=== PATIENT | female | born 1960 | race Caucasian/White ===

== ENCOUNTER → 2016-10-02 | Outpatient (CLI) | payer BC ==
[~2016-10-02] MED LIST: CATHETER FLUSH 10 ML SYR IV PRN; IOHEXOL 350 MG/ML 100 ML (OMNIPAQUE 350) VIAL IV ONE; LEVO175T2 PO; NS 100 ML (IVPB) BAG IV ONE
[2016-10-02 13:40] LABS: BLOOD UREA NITROGEN 16 MG/DL (7-18); BUN/CREATININE RATIO 18; CREATININE SERUM 0.88 MG/DL (0.60-1.30); GFR ESTIMATED > 60
--- NOTE | 2016-10-02 14:41 | Diagnostic Imaging Report ---
PROCEDURE: CT abdomen and pelvis with contrast. TECHNIQUE: Multiple contiguous axial images were obtained through the abdomen and pelvis after administration of intravenous contrast. INDICATION: Abdominal hernia with right flank pain. COMPARISON: 07/18/2014 FINDINGS: Lower chest: The lung bases are clear. No pericardial or pleural effusion. Peritoneum: No free intraperitoneal air or fluid. Liver and biliary system: Diffuse hypoattenuation of the liver suggests hepatic steatosis. Stable surgical changes of partial right hepatectomy. No suspicious hepatic lesion to suggest neoplastic process. Specifically, there is no lesion in the region of the hypodensity seen in the left hepatic lobe on prior CT from 2014. Portal vein is patent. Status post cholecystectomy. No bile duct dilatation. Spleen and Pancreas: Spleen is normal. The pancreas enhances normally without mass lesion or peripancreatic inflammatory changes. Adrenals: Normal. tract: The kidneys enhance normally without suspicious mass or obstruction. Urinary bladder is distended without wall thickening. Status post hysterectomy. No suspicious adnexal mass. GI tract: Stomach is decompressed. No bowel obstruction. No pericolonic inflammatory changes. Normal appendix. Vasculature and Lymph nodes: Normal caliber aorta. No abdominal or pelvic lymphadenopathy. Musculoskeletal: No concerning osseous lesion. No hernia at the ventral abdominal wall. IMPRESSION: 1. No acute intra-abdominal process. Specifically, no bowel obstruction, urinary tract calculi or obstructive uropathy. 2. Stable surgical changes from partial right hepatectomy. No suspicious hepatic lesion. Dictated by: Dictated on workstation # [id number]
== END ==
LOC: RAD 13:00
PROVIDERS: ATTEND Family Medicine
DX: K43.2 Incisional hernia without obstruction or gangrene (principal)
CPT/HCPCS: 36415; 74177; 82565; 84520

== ENCOUNTER 2016-10-29 14:48 | Emergency (ER) | payer BC ==
[~2016-10-29] VITALS: Ht 162.6 cm; Wt 72.6 kg
[~2016-10-29 14:48] MED LIST changes: -CATHETER FLUSH 10 ML SYR IV PRN; -IOHEXOL 350 MG/ML 100 ML (OMNIPAQUE 350) VIAL IV ONE; -NS 100 ML (IVPB) BAG IV ONE
[2016-10-29] MEDS ORDERED: NS IV 1000 ML 1,000 ML IV SCH (15:30)
[2016-10-29 15:43] LABS: BILIRUBIN,URINE NEGATIVE (NEGATIVE); KETONES,URINE NEGATIVE (NEGATIVE); LEUKOCYTE ESTERASE ,URINE 1+ (NEGATIVE); NITRITE,URINE NEGATIVE (NEGATIVE); PH,URINE 6 (5-9); PROTEIN,URINE NEGATIVE (NEGATIVE); UROBILINOGEN,URINE NORMAL (NORMAL)
--- NOTE | 2016-10-29 15:44 | ED General ---
General Chief Complaint: General Problems/Pain Stated Complaint: POSS DEHYDRATION Nursing Triage Note: PT AMBULATED TO ROOM. PT STATES SHE KNOWS SHE IS DEHYDRATED. PT STATES SHE IS DIZZY, AND DISORIENTATED. PT STATES SHE HAS HAD DIARRHEA FOR APPROX. A MONTH NOW. Nursing Sepsis Screen: No Definite Risk Source of Information: Patient Exam Limitations: No Limitations History of Present Illness Time Seen by Provider: 15:41 Initial Comments To ER with complaints of dehydration. She states that she has been dizzy, disoriented secondary to watery diarrhea without blood or mucus that she's had for a month. This is been evaluated by her primary care provider and her car supplier at and states that no one can figure out why. She states that she's had a CT scan as well as stool sample done which failed to show any abnormalities. She's been on Levsin without improvement and she's been on Flagyl and Diflucan as well. She does not have vomiting or chills. She has epigastric abdominal pain and right sided abdominal pain. Timing/Duration: 1-2 Days Severity: Moderate Allergies and Home Medications Allergies Coded Allergies: Nitrofurantoin Macrocrystal (Verified Allergy, Unknown, 03/26/14) nitrofurantoin (Verified Allergy, Unknown, 03/26/14) ofloxacin (Verified Allergy, Unknown, 03/26/14) Uncoded Allergies: PRN VK (Allergy, Unknown, 03/26/14) Z PACK (Allergy, Unknown, 03/26/14) Home Medications Levothyroxine Sodium 175 Mcg Tablet, 1 EACH PO DAILY, (Reported) Constitutional: see HPI EENTM: see HPI Respiratory: no symptoms reported Cardiovascular: no symptoms reported Gastrointestinal: diarrhea Genitourinary: no symptoms reported Musculoskeletal: no symptoms reported Skin: no symptoms reported Psychiatric/Neurological: No Symptoms Reported Hematologic/Lymphatic: No Symptoms Reported Past Vcgudmk-Jzllsj-Vllvwd Hx Patient Social History Alcohol Use: Denies Use Recreational Drug Use: No Smoking Status: Never a Smoker 2nd Hand Smoke Exposure: No Recent Foreign Travel: No Contact w/Someone Who Travel: No Recent Infectious Disease Expo: No Recent Hopitalizations: No Surgeries Surgeries: Gallbladder, Hysterectomy, Thyroidectomy Respiratory Respiratory Disorders: Pneumonia Cardiovascular Cardiac Disorders: Hypertension Neurological Neurological Disorders: Concussion 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 Cancer Cancer: Thyroid Blood Transfusions Adverse Reaction to a Blood Tr: Yes (PT STATES SHE ALMOST WHEN SHE GOT HER LIVER RESECTION) Physical Exam Vital Signs Vital Sign - Last 12Hours 10/29/16 15:11 Temp 98.8 Pulse 89 Resp 20 B/P (MAP) 189/109 Pulse Ox 98 O2 Delivery Room Air Capillary Refill : Less Than 3 Seconds General Appearance: No Apparent Distress, WD/WN Eyes: Bilateral Eye EOMI, Bilateral Eye Normal Inspection, Bilateral Eye PERRL HEENT: PERRL/EOMI Neck: Full Range of Motion, Normal Inspection Respiratory: Normal Breath Sounds, No Accessory Muscle Use, No Respiratory Distress Cardiovascular: Regular Rate, Rhythm, Normal Peripheral Pulses Gastrointestinal: Normal Bowel Sounds, Non Tender, Soft Extremity: Normal Capillary Refill, Normal Inspection Neurologic/Psychiatric: Alert, Oriented x3, No Motor/Sensory Deficits Skin: Normal Color, Warm/Dry Progress/Results/Core Measures Results/Orders Lab Results Laboratory Tests Test 10/29/16 15:28 10/29/16 15:34 Range/Units Urine Color YELLOW Urine Clarity CLEAR Urine pH 6 5-9 Urine Specific [place] 1.015 L 1.016-1.022 Urine Protein NEGATIVE NEGATIVE Urine Glucose (UA) NEGATIVE NEGATIVE Urine Ketones NEGATIVE NEGATIVE Urine Nitrite NEGATIVE NEGATIVE Urine Bilirubin NEGATIVE NEGATIVE Urine Urobilinogen NORMAL NORMAL MG/DL Urine Leukocyte Esterase 1+ H NEGATIVE Urine RBC (Auto) NEGATIVE NEGATIVE Urine RBC NONE /HPF Urine WBC 0-2 /HPF Urine Squamous Epithelial Cells 0-2 /HPF Urine Crystals NONE /LPF Urine Bacteria NONE /HPF Urine Casts NONE /LPF Urine Mucus NEGATIVE /LPF Urine Culture Indicated NO White Blood Count 7.7 4.3-11.0 10^3/uL Red Blood Count 4.76 4.35-5.85 10^6/uL Hemoglobin 13.8 11.5-16.0 G/DL Hematocrit 42 35-52 % Mean Corpuscular Volume 88 80-99 FL Mean Corpuscular Hemoglobin 29 25-34 PG Mean Corpuscular Hemoglobin Concent 33 32-36 G/DL Red Cell Distribution Width 13.5 10.0-14.5 % Platelet Count 290 130-400 10^3/uL Mean Platelet Volume 10.0 7.4-10.4 FL Neutrophils (%) (Auto) 53 42-75 % Lymphocytes (%) (Auto) 36 12-44 % Monocytes (%) (Auto) 10 0-12 % Eosinophils (%) (Auto) 1 0-10 % Basophils (%) (Auto) 1 0-10 % Neutrophils # (Auto) 4.1 1.8-7.8 X 10^3 Lymphocytes # (Auto) 2.7 1.0-4.0 X 10^3 Monocytes # (Auto) 0.8 0.0-1.0 X 10^3 Eosinophils # (Auto) 0.1 0.0-0.3 10^3/uL Basophils # (Auto) 0.0 0.0-0.1 10^3/uL Sodium Level 141 135-145 MMOL/L Potassium Level 4.1 3.6-5.0 MMOL/L Chloride Level 107 98-107 MMOL/L Carbon Dioxide Level 25 21-32 MMOL/L Anion Gap 9 5-14 MMOL/L Blood Urea Nitrogen 12 7-18 MG/DL Creatinine 0.83 0.60-1.30 MG/DL Estimat Glomerular Filtration Rate > 60 BUN/Creatinine Ratio 14 0-20 Glucose Level 97 70-105 MG/DL Calcium Level 9.7 8.5-10.1 MG/DL Total Bilirubin 0.5 0.1-1.0 MG/DL Aspartate Amino Transf (AST/SGOT) 24 5-34 U/L Alanine Aminotransferase (ALT/SGPT) 31 0-55 U/L Alkaline Phosphatase 74 40-136 U/L Total Protein 6.6 6.4-8.2 GM/DL Albumin 4.4 3.2-4.5 GM/DL My Orders Orders - SANDRA LONG APRN Cbc With Automated Diff (10/29/16 15:19) Comprehensive Metabolic Panel (10/29/16 15:19) Ua Culture If Indicated (10/29/16 15:19) Saline Lock/Iv-Start (10/29/16 15:19) Ns Iv 1000 Ml (Sodium Chloride 0.9%) (10/29/16 15:30) Vital Signs/I&O Vital Sign - Last 12Hours 10/29/16 15:11 Temp 98.8 Pulse 89 Resp 20 B/P (MAP) 189/109 Pulse Ox 98 O2 Delivery Room Air Blood Pressure Mean: 135 Departure Impression Impression: Primary Impression: Diarrhea Disposition: 01 HOME, SELF-CARE Condition: Stable Departure-Patient Inst. Decision time for Depature: 15:58 Referrals: ORENDER,LEONEL S DO (PCP/Family) Primary Care Physician Patient Instructions: Diarrhea and Traveler's Diarrhea, Adult (DC) Add. Discharge Instructions: 1. Follow-up with her car supplier for further workup of this diarrhea All discharge instructions reviewed with patient and/or family. Voiced understanding. SANDRA LONG APRN Oct 29, 2016 15:44
[2016-10-29 15:47] LABS: BASOPHILS % (AUTO) 1 % (0-10); EOSINOPHILS # (AUTO) 0.1 10^3/uL (0.0-0.3); EOSINOPHILS % (AUTO) 1 % (0-10); LYMPHOCYTES # (AUTO) 2.7 X 10^3 (1.0-4.0); LYMPHOCYTES % (AUTO) 36 % (12-44); MEAN CORPUSCULAR HEMOGLOBIN 29 PG (25-34); MEAN CORPUSCULAR HGB CONC 33 G/DL (32-36); MEAN CORPUSCULAR VOLUME 88 FL (80-99); MONOCYTES # (AUTO) 0.8 X 10^3 (0.0-1.0); MONOCYTES % (AUTO) 10 % (0-12); NEUTROPHILS # (AUTO) 4.1 X 10^3 (1.8-7.8); NEUTROPHILS % (AUTO) 53 % (42-75); PLATELET COUNT 290 10^3/uL (130-400); RED BLOOD COUNT 4.76 10^6/uL (4.35-5.85); RED CELL DISTRIBUTION WIDTH 13.5 % (10.0-14.5); WHITE BLOOD COUNT 7.7 10^3/uL (4.3-11.0)
[2016-10-29 15:50] LABS: SQUAMOUS EPITHELIAL CELL,UR 0-2 /HPF; WBC,URINE 0-2 /HPF
[2016-10-29 16:05] LABS: ALANINE AMINOTRANSFERASE 31 U/L (0-55); ALBUMIN 4.4 GM/DL (3.2-4.5); ANION GAP 9 MMOL/L (5-14); ASPARTATE AMINO TRANSFERASE 24 U/L (5-34); BILIRUBIN,TOTAL 0.5 MG/DL (0.1-1.0); BLOOD UREA NITROGEN 12 MG/DL (7-18); BUN/CREATININE RATIO 14 (0-20); CALCIUM 9.7 MG/DL (8.5-10.1); CARBON DIOXIDE 25 MMOL/L (21-32); CHLORIDE 107 MMOL/L (98-107); CREATININE SERUM 0.83 MG/DL (0.60-1.30); GFR ESTIMATED > 60; GLUCOSE 97 MG/DL (70-105); HEMOLYSIS 7 (0-29); ICTERUS 0.6 (0-1.9); LIPEMIA 6 (0-49); POTASSIUM 4.1 MMOL/L (3.6-5.0); SODIUM 141 MMOL/L (135-145); TOTAL PROTEIN 6.6 GM/DL (6.4-8.2)
[2016-10-29 17:02] VITALS: BP 174/96
== END 2016-10-29 17:02 | disposition home or self-care (01) ==
LOC: EDUNIT# 14:48 → ER 14:51
DX: R19.7 Diarrhea, unspecified (principal); I10 Essential (primary) hypertension
CPT/HCPCS: 36415; 80053; 81000; 84439; 84443; 85025

== ENCOUNTER → 2018-07-01 | Outpatient (CLI) | payer BC | LOC: RAD 14:41 | DX: Z12.31 Encounter for screening mammogram for malignant neoplasm of breast (principal) | CPT/HCPCS: 77067 ==

== ENCOUNTER 2021-10-19 03:15 | Inpatient (IN) | payer BC, OTHER ==
[~2021-10-19] VITALS: Ht 165.1 cm; Wt 82.8 kg
[2021-10-19] MEDS ORDERED: NS IV 1000 ML 1,000 ML IV SCH (03:45)
[2021-10-19] MEDS ORDERED: ONDANSETRON 4 MG/2 ML (SDV) Z0FRAN IV PRN (03:45)
[2021-10-19] MEDS ORDERED: ACETAMINOPHEN 325 MG TABLET PO PRN (03:45)
[2021-10-19] MEDS ORDERED: VANCOMYCIN INJECTION 0.1 MG in NS (IVPB) 250 ML IV SCH (04:00)
[2021-10-19] MEDS ORDERED: inSUlin ASPART (NovoLOG) 1 UNIT/0.01 ML (CHARGE PER UNIT) SC SCH (06:00)
[2021-10-19 06:02] LABS: HEMATOCRIT 49 % (35-52); HEMOGLOBIN 15.6 g/dL (11.5-16.0); MEAN CORPUSCULAR HEMOGLOBIN 30 pg (25-34); MEAN CORPUSCULAR HGB CONC 32 g/dL (32-36); MEAN CORPUSCULAR VOLUME 93 fL (80-99); MEAN PLATELET VOLUME 10.9 fL (9.0-12.2); PLATELET COUNT 249 10^3/uL (130-400)
[2021-10-19 06:12] LABS: POTASSIUM 3.3 MMOL/L (3.6-5.0)
[2021-10-19 06:13] LABS: CALCIUM 8.5 MG/DL (8.5-10.1)
[2021-10-19 06:18] LABS: CREATININE SERUM 0.96 MG/DL (0.60-1.30)
[2021-10-19 06:20] LABS: MAGNESIUM 2.1 MG/DL (1.6-2.4)
[2021-10-19] MEDS: PROPOFOL DRIP (ICU) 100 ML IV SCH ×3 (06:40→20:42)
[2021-10-19] MEDS ORDERED: POTASSIUM CL 10MEQ/50ML IVPB 200 ML IV ONE (06:57)
[2021-10-19] MEDS: POTASSIUM CL 10MEQ/50ML IVPB 50 ML IV SCH ×4 (07:00→10:09)
--- NOTE | 2021-10-19 07:16 | Diagnostic Imaging Report ---
INDICATION: Intubation. FINDINGS: There is a diffuse infiltrate in the right lung suspect for pneumonia. There is cardiomegaly. There is mild venous congestion. The left lung is clear. There is no pneumothorax. ET and NG tubes are in satisfactory position IMPRESSION: Diffuse infiltrate in the right lung suspect for pneumonia. Cardiomegaly and mild central pulmonary venous congestion. Dictated by: Dictated on workstation # [id number]
[2021-10-19 07:46] VITALS: BP 117/69
[2021-10-19 07:53] LABS: ABG BASE EXCESS -4.1 MMOL/L (-2.5-2.5); ABG OXYGEN SATURATION 99 % (94-100); ABG PCO2 48 MMHG (35-45); ABG PO2 196 MMHG (79-93)
[2021-10-19 07:57] LABS: ABG PH 7.28 (7.37-7.43); INSPIRED O2 70%; VENTILATOR NO
[2021-10-19] MEDS ORDERED: VANCOMYCIN 1500 MG/NS 500 ML IVPB IV NR ×2 (08:00)
[2021-10-19] MEDS: PANTOPRAZOLE 40 MG (PROTONIX) VIAL IV SCH (08:27)
[2021-10-19] MEDS: methylPREDNISolone 40 MG/ML (Solu-MEDROL) VIAL IV SCH ×3 (08:27→20:09)
[2021-10-19] MEDS: CEFEPIME INJECTION 1,000 MG in NS (IVPB) 50 ML IV SCH ×3 (08:28→20:09)
--- NOTE | 2021-10-19 09:03 | History & Physical-Hospitalist ---
History of Present Illness HPI/Chief Complaint Patient is a 61-year-old female with a past medical history of asthma and hypothyroidism who presented to outside hospital due to shortness of breath. She is intubated and sedated so all history is obtained from the records. She reportedly called EMS due to acute onset shortness of breath. On arrival to her house EMS found her with oxygen saturation of 57% and severe air hunger. They attempted to place her on CPAP but she was unable to tolerate so she was given Ativan in route. She escalated to needing to be intubated at outside hospital. CT chest was done which revealed multilobar pneumonia with worse in the right upper lobe. It was also negative for pulmonary embolism. CT head and C-spine were done and were negative for acute findings. She was started on cefepime and transferred here for further management. She is able to answer some yes and no questions but very minimal. She denies any pain. She shakes her head when asked if she was short of breath. Otherwise she is not able to participate in exam. Date Seen 10/19/21 Time Seen by a Provider: 08:15 Attending Physician No,Local Physician PCP Admitting Physician: Jose Rene MD Attending Physician: Jose Rene MD Referring Physician Date of Admission Oct 19, 2021 at 05:21 Home Medications & Allergies Home Medications Reviewed patient Home Medication Reconciliation performed by pharmacy medication reconciliations pollution control technician and/or nursing. Patients Allergies have been reviewed. Allergies Allergies Coded Allergies Nitrofurantoin Macrocrystal (Verified Allergy, Unknown, 03/26/14) nitrofurantoin (Verified Allergy, Unknown, 03/26/14) ofloxacin (Verified Allergy, Unknown, 03/26/14) Uncoded Allergies PRN VK ( Allergy, Unknown, 03/26/14) Z PACK ( Allergy, Unknown, 03/26/14) Past Twmfsym-Upbrzu-Jcebsq Hx Patient Social History Marrital Status: Employed/Student: employed Smoking Status: Unknown if Ever Smoked Smokeless Tobacco Frequency: Unknown if Ever Used Use of E-Cig and/or Vaping dev: Unable to obtain Substance use?: Unable to obtain Alcohol Use?: Unable to obtain Pt feels they are or have been: Unable to obtain Current Status status: Unable to obtain status: Unable to obtain Advance Directives: Unable to obtain Past Medical History Surgeries: Gallbladder, Hysterectomy, Thyroidectomy Pneumonia Hypertension 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 Hypothyroidsim Thyroid Did You Recieve Any Treatments: Yes What Type of Treatment Did You: Radiation Blood Disorders: Yes Adverse Reaction/Blood Tranf: Yes (PT STATES SHE ALMOST WHEN SHE GOT HER LIVER RESECTION) Family Medical History Reviewed Nursing Family Hx No Pertinent Family Hx Review of Systems ROS-Unable to Obtain: intubated and sedated, unable to answer most questions Constitutional: see HPI Respiratory: short of breath Physical Exam Physical Exam Vital Signs Vital Signs - First Documented 10/19/21 10/19/21 05:35 06:11 Temp 36.0 Pulse 86 Resp 16 B/P (MAP) 137/87 Pulse Ox 100 O2 Delivery Mechanical Ventilator O2 Flow Rate 100.00 FiO2 100 Capillary Refill : Height, Weight, BMI Height: 5'4" Weight: 160lbs. oz. 72.742935kn; 30.44 BMI Method:Stated General Appearance: Other (intuabted, sedated, appears comfortable) HEENT: PERRL/EOMI, Moist Mucous Membranes; No Scleral Icterus (L), No Scleral Icterus (R); Other (ETT and OG in place) Neck: Normal Inspection, Supple Respiratory: Decreased Breath Sounds; No Wheezing; Other (on vent) Cardiovascular: Regular Rate, Rhythm, No JVD, No Murmur, Normal Peripheral Pulses Gastrointestinal: Normal Bowel Sounds, Non Tender, Soft; No Distended Genital/Rectal: Other (huston in place, yellow urine noted in bag) Extremity: Normal Capillary Refill, No Calf Tenderness, No Pedal Edema Neurologic/Psychiatric: Alert; No Facial Droop; Other (answered a couple of questions seemingly appropriately, unable to furhter assess oriention) Skin: Normal Color, Warm/Dry; No Diaphoresis, No Mottled, No Petechia Results Results/Procedures Labs Laboratory Tests 10/19/21 05:48 Patient resulted labs reviewed. Imaging: Reviewed Imaging Report Imaging [facility], [place] NAME: BubbaJAYNE BLANKENSHIP Marlin MED REC#: [id number] PT STATUS: ADM IN : 1960 PHYSICIAN: JOSE RENE MD ADMIT DATE: 10/19/21/ICU Signed Date of Exam:10/19/21 CHEST 1 VIEW, AP/PA ONLY INDICATION: Intubation. FINDINGS: There is a diffuse infiltrate in the right lung suspect for pneumonia. There is cardiomegaly. There is mild venous congestion. The left lung is clear. There is no pneumothorax. ET and NG tubes are in satisfactory position IMPRESSION: Diffuse infiltrate in the right lung suspect for pneumonia. Cardiomegaly and mild central pulmonary venous congestion. Dictated by: Dictated on workstation # [id number] Dict: 10/19/21 0711 Trans: 10/19/2144 CVB [id number] Interpreted by: RAMÍREZ KLEIN MD Electronically signed by: RAMÍREZ KLEIN MD 10/19/21743 Reviewed outside imaging. Synopsis- CTA chest- multilobar consolidations with RUL being the most severe. No pulmonary embolism. CT Head and c-spine- No ICH or acute c spine findings. Assessment/Plan Admission Diagnosis Acute hypoxic respiratory failure Admission Status: Inpatient Order (span 2 midnights) Assessment and Plan Acute hypoxic respiratory failure Sepsis due to pneumonia Asthma Intubated 6/5 AM at OSH TeleICU consulted, appreciate assistanc Discussed with Dr Valdes on admission Continue on Vanc and Cefepime MAT protocol Await cultures from OSH Hypothyroidism HTN No acute needs, continue home meds as able DVT ppx: Lovenox Critical Care Critically Ill Patient Diagnosis/Problems Diagnosis/Problems (1) Severe sepsis Status: Acute (2) Hypothyroidism Qualifiers: Hypothyroidism type: postablative Qualified Codes: E89.0 - Postprocedural hypothyroidism (3) Hypertension Qualifiers: Hypertension type: primary hypertension Qualified Codes: I10 - Essential (primary) hypertension (4) CAP (community acquired pneumonia) Qualifiers: Laterality: right Lung location: upper lobe of lung Qualified Codes: J18.9 - Pneumonia, unspecified organism (5) Acute respiratory failure Status: Acute Qualifiers: Respiratory failure complication: hypoxia and hypercapnia Qualified Codes: J96.01 - Acute respiratory failure with hypoxia; J96.02 - Acute respiratory failure with hypercapnia JOSE RENE MD Oct 19, 2021 09:03
--- NOTE | 2021-10-19 09:36 | Tele-ICU Consult ---
Progress Note video rounds completed 61 y/o f hx of asthma presented to OSH with severe hypoxemia nd was intubated and transferred On steroids and nebs and antibiotics for CT evidence of PNA (from OSH) CXR: FINDINGS: There is a diffuse infiltrate in the right lung suspect for pneumonia. There is cardiomegaly. There is mild venous congestion. The left lung is clear. There is no pneumothorax. ET and NG tubes are in satisfactory position IMPRESSION: Diffuse infiltrate in the right lung suspect for pneumonia. Cardiomegaly and mild central pulmonary venous congestion. Vent: AC 20/450/30%/5 ABG: PCO2 48 , oxygenating well PO2 196 PLAN: CPM with ventilationand antibiotics PAntoprazole for GI PX and Lovenox for DVT px Focused Exam Height, Weight, BMI Height: 5'4" Weight: 160lbs. oz. 72.020480mu; 30.44 BMI Method:Stated Laboratory Tests 10/19/21 05:48 Results Results/Procedures Lab Laboratory Tests 10/19/21 05:48 Results Labs Labs Laboratory Tests 10/19/21 05:48: White Blood Count 19.0H, Red Blood Count 5.22H, Hemoglobin 15.6, Hematocrit 49, Mean Corpuscular Volume 93, Mean Corpuscular Hemoglobin 30, Mean Corpuscular Hemoglobin Concent 32, Red Cell Distribution Width 13.4, Platelet Count 249, Mean Platelet Volume 10.9, Sodium Level 144, Potassium Level 3.3L, Chloride Level 107, Carbon Dioxide Level 21, Anion Gap 16H, Blood Urea Nitrogen 17, Creatinine 0.96, Estimat Glomerular Filtration Rate 67, BUN/Creatinine Ratio 18, Glucose Level 159H, Calcium Level 8.5, Magnesium Level 2.1, Triglycerides Level 111 10/19/21 06:45: Glucometer 128H 10/19/21 07:41: Blood Gas Puncture Site RT RAD, Blood Gas Patient Temperature 37.0, Arterial Blood pH 7.28*L, Arterial Blood Partial Pressure CO2 48H, Arterial Blood Partial Pressure O2 196H, Arterial Blood HCO3 22L, Arterial Blood Total CO2 23.0, Arterial Blood Oxygen Saturation 99, Arterial Blood Base Excess -4.1L, Cade Test NA, Blood Gas Ventilator Setting NO, Blood Gas Inspired Oxygen 70% YONATHAN MCLAUGHLIN MD Oct 19, 2021 09:36
[2021-10-19 09:42] VITALS: BP 118/66
[2021-10-19 09:55] LABS: ABG BASE EXCESS -4.7 MMOL/L (-2.5-2.5); ABG OXYGEN SATURATION 95 % (94-100); ABG PCO2 37 MMHG (35-45); ABG PH 7.35 (7.37-7.43); ABG PO2 69 MMHG (79-93); ABG TCO2 21.1 MMOL/L (21.0-31.0)
[2021-10-19] MEDS: ENOXAPARIN 40 MG/0.4 ML (LOVENOX) SYR SC SCH (09:55)
[2021-10-19 09:57] LABS: ALLENS TEST YES-POS; INSPIRED O2 30%; VENTILATOR YES
[2021-10-19 10:11] VITALS: BP 120/79
[2021-10-19] MEDS ORDERED: RT-ALBUTEROL SULF 2.5 MG/3 ML PRE-MIX VIAL INH PRN (10:15)
[2021-10-19] MEDS: NS IV 1000 ML 1,000 ML IV SCH ×2 (10:23→15:07)
[2021-10-19] MEDS: inSUlin ASPART (NovoLOG) 1 UNIT/0.01 ML (CHARGE PER UNIT) SC SCH ×2 (11:21→18:49)
[2021-10-19 15:04] VITALS: BP 106/58
[2021-10-19] MEDS: RT-ALBUTEROL SULF 2.5 MG/3 ML PRE-MIX VIAL INH SCH ×2 (15:04→23:20)
[2021-10-19 19:04] VITALS: BP 113/54
[2021-10-19] MEDS: VANCOMYCIN 1250 MG/NS 250 ML IVPB IV SCH ×2 (20:06)
[2021-10-19 23:30] VITALS: BP 106/58
[2021-10-20] MEDS: inSUlin ASPART (NovoLOG) 1 UNIT/0.01 ML (CHARGE PER UNIT) SC SCH ×5 (00:30→22:12)
[2021-10-20] MEDS: CEFEPIME INJECTION 1,000 MG in NS (IVPB) 50 ML IV SCH ×4 (02:01→22:00)
[2021-10-20] MEDS: PROPOFOL DRIP (ICU) 100 ML IV SCH ×2 (02:01→06:49)
[2021-10-20] MEDS: methylPREDNISolone 40 MG/ML (Solu-MEDROL) VIAL IV SCH ×2 (02:01→07:58)
[2021-10-20 02:29] VITALS: BP 117/60
[2021-10-20] MEDS: RT-ALBUTEROL SULF 2.5 MG/3 ML PRE-MIX VIAL INH SCH ×3 (02:29→20:12)
[2021-10-20 05:08] LABS: ABG BASE EXCESS -7.3 MMOL/L (-2.5-2.5); ABG OXYGEN SATURATION 97 % (94-100); ABG PCO2 30 MMHG (35-45); ABG PH 7.37 (7.37-7.43); ABG PO2 76 MMHG (79-93); ABG TCO2 18.2 MMOL/L (21.0-31.0); ALLENS TEST POSITIVE; INSPIRED O2 30%; VENTILATOR YES
[2021-10-20 05:09] LABS: PATIENT TEMP 36
[2021-10-20 05:16] LABS: BASOPHILS % (AUTO) 0 % (0-10); EOSINOPHILS % (AUTO) 0 % (0-10); HEMATOCRIT 35 % (35-52); HEMOGLOBIN 11.4 g/dL (11.5-16.0); LYMPHOCYTES # (AUTO) 0.6 10^3/uL (1.0-4.0); LYMPHOCYTES % (AUTO) 5 % (12-44); MEAN CORPUSCULAR HEMOGLOBIN 30 pg (25-34); MEAN CORPUSCULAR HGB CONC 33 g/dL (32-36); MEAN CORPUSCULAR VOLUME 90 fL (80-99); MEAN PLATELET VOLUME 10.4 fL (9.0-12.2); MONOCYTES # (AUTO) 0.3 10^3/uL (0.0-1.0); MONOCYTES % (AUTO) 3 % (0-12); NEUTROPHILS # (AUTO) 12.5 10^3/uL (1.8-7.8); NEUTROPHILS % (AUTO) 92 % (42-75); PLATELET COUNT 218 10^3/uL (130-400); WHITE BLOOD COUNT 13.5 10^3/uL (4.3-11.0)
[2021-10-20 05:26] LABS: ALBUMIN 3.2 GM/DL (3.2-4.5); POTASSIUM 3.2 MMOL/L (3.6-5.0)
[2021-10-20 05:29] LABS: TOTAL PROTEIN 5.8 GM/DL (6.4-8.2)
[2021-10-20 05:30] LABS: BILIRUBIN,TOTAL 0.5 MG/DL (0.1-1.0)
[2021-10-20] MEDS: POTASSIUM CL 10MEQ/50ML IVPB 50 ML IV SCH ×5 (05:31→08:30)
[2021-10-20 05:32] LABS: CREATININE SERUM 0.95 MG/DL (0.60-1.30); PHOSPHORUS 3.1 MG/DL (2.3-4.7)
[2021-10-20] MEDS: KCL 20 MEQ TAB (K-DUR) PO SCH (05:32)
[2021-10-20 05:35] LABS: MAGNESIUM 1.8 MG/DL (1.6-2.4)
[2021-10-20] MEDS: MAGNESIUM 1 GM/100 ML IVPB 100 ML IV SCH (06:05)
--- NOTE | 2021-10-20 06:05 | Diagnostic Imaging Report ---
INDICATION: Respiratory failure AP view of the chest is obtained with comparison made to the study of one day earlier. There is mild diffuse airspace disease which has shown significant improvement particularly in the right lung. Endotracheal tube and nasogastric tube remain in stable position. There is no pneumothorax or adverse change. IMPRESSION: Significant improvement in airspace disease indicates likely improvement in pulmonary edema and clinical correlation would be of use. Dictated by: Dictated on workstation # [id number]
--- NOTE | 2021-10-20 06:54 | Occ Therapy Progress Note ---
Therapy Progress Note OT orders received. Pt is currently intubated. OT will continue to monitor pt's status and will initiate treatment when pt is medically stable and able to actively participate in skilled therapy. RONI URIBE Oct 20, 2021 06:54
[2021-10-20 07:41] VITALS: BP 103/49
[2021-10-20] MEDS: VANCOMYCIN 1250 MG/NS 250 ML IVPB IV SCH ×2 (07:53)
[2021-10-20] MEDS: PANTOPRAZOLE 40 MG (PROTONIX) VIAL IV SCH (07:55)
--- NOTE | 2021-10-20 08:59 | Physical Therapy Progress Note ---
Therapy Progress Note Patient is currently still intubated. Apparently she may be extubated today. Will check back this afternoon or in the morning to evaluate patient when appropriate. KYLE NARAYAN PT Oct 20, 2021 08:59
[2021-10-20 09:31] LABS: ABG BASE EXCESS -6.3 MMOL/L (-2.5-2.5); ABG OXYGEN SATURATION 95 % (94-100); ABG PCO2 32 MMHG (35-45); ABG PH 7.37 (7.37-7.43); ABG PO2 68 MMHG (79-93)
[2021-10-20 09:32] LABS: ALLENS TEST YES-POS; INSPIRED O2 30%; PATIENT TEMP 36.6; VENTILATOR YES
--- NOTE | 2021-10-20 09:44 | Tele-ICU Progress Note ---
Subjective Date Seen by a Provider: Oct 20, 2021 Time Seen by a Provider: 08:56 Subjective/Events-last exam (Tele-ICU Physician , Progress Note ) Available chart/ vitals / labs / Images reviewed Video assessment done using teleICU camera, rest of exam as per RN Discussed with RN , EXAM PER RN Events overnight : Afebrile FiO2 - 30 I/O = Drips: propofol Pressors: , hemodynamically stable Sedation gtt: ( RASS ) VENT SETTINGS and ABG reviewed candidate for SBT today REVIEWED Cardiovas cular Stability / Sedation Score / FI02/PEEP / ABG / CXR Consultants: Hospital course: (10/19) 61 y F from other hospital with AMS, resp failure PNA INTUBATED A/P Acute resp failure - will try SBT today - PAP low , AAO , 30 % Suspected br -spam - most likley to decrease staroids today Suspected PNA - on empirioc abx , improving cxr - consider narroe down - rapod covid neg PCR pending Lines : (Central Line Necessity Reviewed) Bowden: OG: Nutrition: Analgesia: Anxiety/ delirium VTE Prophylaxis: lorie 40 Stress Ulcer Prophylaxis: ppi Plans in collaboration with bedside consultants and IM MDs. Discussed with RN to reach out if any questions or concerns A total of 33 minutes of critical care time was devoted to this patient today, required to treat and/or prevent further deterioration of critical care condition ( as above) . Sepsis Event Evaluation Height, Weight, BMI Height: 5'4" Weight: 160lbs. oz. 72.327388uo; 30.44 BMI Method:Stated Exam Exam Patient acknowledged, consented, and participated in this virtual visit which was conducted using real time audio/video Vital Signs Date Time Temp Pulse Resp B/P (MAP) Pulse Ox O2 Delivery O2 Flow Rate FiO2 10/20/21 09:00 111 20 122/67 96 Mechanical Ventilator 30.00 10/20/21 08:13 37.0 10/20/21 08:00 96 Mechanical Ventilator 30 10/20/21 07:41 103 20 94 30 10/20/21 07:32 92 10/20/21 06:49 97 110/53 10/20/21 06:00 103 20 106/49 93 Mechanical Ventilator 30.00 10/20/21 05:00 113 20 119/54 95 Mechanical Ventilator 30.00 10/20/21 04:00 94 Mechanical Ventilator 30 10/20/21 04:00 113 20 106/52 95 Mechanical Ventilator 30.00 10/20/21 03:00 126 20 142/68 97 Mechanical Ventilator 30.00 10/20/21 02:29 90 20 94 30 10/20/21 02:01 94 125/72 10/20/21 02:00 93 20 125/72 99 Mechanical Ventilator 30.00 10/20/21 01:00 99 10/20/21 01:00 99 20 103/90 93 Mechanical Ventilator 30.00 10/20/21 00:00 92 20 119/61 95 Mechanical Ventilator 30.00 10/19/21 23:59 94 Mechanical Ventilator 30 10/19/21 23:30 90 20 95 30 10/19/21 23:00 88 20 104/56 94 Mechanical Ventilator 30.00 10/19/21 22:00 89 20 99/50 93 Mechanical Ventilator 30.00 10/19/21 21:00 95 20 98/49 93 Mechanical Ventilator 30.00 10/19/21 20:42 97 102/51 10/19/21 20:00 94 Mechanical Ventilator 30 10/19/21 20:00 101 20 96/48 94 Mechanical Ventilator 30.00 10/19/21 19:04 105 20 97 30 10/19/21 19:00 106 10/19/21 19:00 106 20 113/54 96 Mechanical Ventilator 30.00 10/19/21 18:00 112 21 122/83 95 Mechanical Ventilator 30.00 10/19/21 17:58 37.0 10/19/21 17:06 37.9 10/19/21 17:00 108 19 108/54 95 Mechanical Ventilator 30.00 10/19/21 16:31 95 Mechanical Ventilator 30 10/19/21 16:00 111 17 120/58 96 Mechanical Ventilator 30.00 10/19/21 15:04 96 20 93 30 10/19/21 15:00 93 20 106/58 94 Mechanical Ventilator 30.00 10/19/21 14:00 94 19 99/55 94 Mechanical Ventilator 30.00 10/19/21 13:49 93 117/71 10/19/21 13:00 97 19 103/60 95 Mechanical Ventilator 30.00 10/19/21 12:48 93 10/19/21 12:00 98 20 117/71 94 Mechanical Ventilator 30.00 10/19/21 12:00 Mechanical Ventilator 30 10/19/21 12:00 36.5 10/19/21 11:00 93 16 102/56 96 Mechanical Ventilator 30.00 10/19/21 10:11 90 97 30 10/19/21 10:00 89 20 115/59 98 Mechanical Ventilator 30.00 I & O 10/20/21 07:00 Intake Total 2565 ml Output Total 1675 ml Balance 890 ml Height & Weight Height: 5'4" Weight: 160lbs. oz. 72.716890iy; 30.44 BMI Method:Stated General Appearance: Other (intuabted, sedated, appears comfortable) HEENT: PERRL/EOMI, Moist Mucous Membranes; No Scleral Icterus (L), No Scleral Icterus (R); Other (ETT and OG in place) Neck: Normal Inspection, Supple Respiratory: Decreased Breath Sounds; No Wheezing; Other (on vent) Cardiovascular: Regular Rate, Rhythm, No JVD, No Murmur, Normal Peripheral Pulses Extremity: Normal Capillary Refill, No Calf Tenderness, No Pedal Edema Neurologic/Psychiatric: Alert; No Facial Droop; Other (answered a couple of questions seemingly appropriately, unable to furhter assess oriention) Skin: Normal Color, Warm/Dry; No Diaphoresis, No Mottled, No Petechia Results Lab Laboratory Tests 10/19/21 05:48 10/20/21 04:50 Assessment/Plan Assessment/Plan ` GIACOMO WOODARD MD Oct 20, 2021 09:44
[2021-10-20] MEDS: NS IV 1000 ML 1,000 ML IV SCH (10:02)
[2021-10-20] MEDS: ENOXAPARIN 40 MG/0.4 ML (LOVENOX) SYR SC SCH (10:02)
[2021-10-20] MEDS ORDERED: ESTR10TA VG (10:15)
[2021-10-20] MEDS ORDERED: LEVO150T PO (10:15)
[2021-10-20] MEDS ORDERED: ACET-2267 PO (10:16)
[2021-10-20] MEDS ORDERED: MULT-1136 PO (10:16)
[2021-10-20] MEDS ORDERED: CALC-250 PO (10:17)
[2021-10-20 11:54] VITALS: BP 121/81
--- NOTE | 2021-10-20 13:52 | Physical Therapy Evaluation ---
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 2-Gewppeiemj-iuilkkq completes the activity by him/herself with no assistance from a helper. 5-Set-up or Clean-up Assistance-helper sets up or cleans up; patient completes activity. [place] assists only prior to or following the activity. 4-Supervision or Touching Assistance-helper provides verbal cues and/or touching/steadying and/or contact guard assistance as patient completes activity. Assistance may be provided throughout the activity or intermittently. 3-Partial/Moderate Assistance-helper does LESS THAN HALF the effort. [place] lifts, holds or supports trunk or limbs, but provides less than half the effort. 2-Substantial/Maximal Assistance-helper does MORE THAN HALF the effort. [place] lifts or holds trunk or limbs and provides more than half the effort. 9-Isqihahhq-vebwzx does ALL the effort. Patient does none of the effort to complete the activity. Or, the assistance of 2 or more helpers is required for the patient to complete the activity. If activity was not attempted, code reason: 7-Patient Refused. 9-Not Applicable-not attempted and the patient did not perform the activity before the current illness, exacerbation or injury. 10-Not Attempted due to Environmental Limitations-(lack of equipment, weather restraints, etc.). 88-Not Attempted due to Medical Conditions or Safety Concerns. Bed Mobility: 6 Transfers (B,C,W/C): 6 Gait: 6 Stairs: 6 Indoor Mobility (Ambulation): Independent Stairs: Independent PT Evaluation-Current Subjective Patient in bed pre tx, agrees to PT, has no complaints of pain other than at her IV site Pt/Family Goals to be independent at home Objective Patient Orientation: Person, Place, Situation Attachments: Oxygen, Bowden Catheter, IV ROM/Strength ROM Lower Extremities WNL Strength Lower Extremities LLE (hip flexion 4/5, knee flexion 4+/5, knee extension 4+/5, dorsiflexion 4+/5), RLE (hip flexion 4/5, knee flexion 4+/5, knee extension 4+/5, dorsiflexion 4+/5) Sensory Hearing: Functional Sensation Right Lower Extremit: Intact Sensation Left Lower Extremity: Intact Transfers Roll Left to Right (QC): 6 Sit to Lying (QC): 6 Lying to Sitting/Side of Bed(Q: 6 Sit to Stand (QC): 4 Gait Does the Patient Walk?: Yes Mode of Locomotion: Walk Anticipated Mode of Locomotion: Walk Walk 10 feet (QC): 4 Distance: 20' Gait Assistive Device: None Comments/Gait Description slow but steady ambulation, CGA Balance Sitting Static: Normal Sitting Dynamic: Normal Standing Static: Good Standing Dynamic: Good Treatment BLE supine exercises x20 (AP, HS) Assessment/Needs Patient in bed post tx with nurse call, phone, tray, all needs met. Patient has impaired mobility, strength, endurance. She experienced some sudden right leg pain during ambulation and had to lay back down, nurse notified. Rehab Potential: Fair PT Flexo Operator Goals Shelter Goals PT Shelter Goals Time Frame: Oct 27, 2021 Roll Left & Right (QC): 6 Sit to Lying (QC): 6 Lying-Sitting on Side/Bed(QC): 6 Sit to Stand (QC): 6 Chair/Avl-vv-Rwsns Xfer(QC): 6 Walk 10 feet (QC): 6 Walk 50ft with 2 Turns (QC): 6 Walk 150 ft (QC): 6 PT Plan Problem List Problem List: Activity Tolerance, Functional Strength, Safety, Balance, Gait, Transfer, ROM Treatment/Plan Treatment Plan: Continue Plan of Care Treatment Plan: Education, Functional Activity Anuja, Functional Strength, Gait, Safety, Therapeutic Exercise, Transfers Treatment Duration: Oct 27, 2021 Frequency: 6 times per week Estimated Hrs Per Day: .25 hour per day Patient and/or Family Agrees t: Yes Safety Risks/Education Patient Education: Gait Training, Transfer Techniques, Correct Positioning, Safety Issues Teaching Methods: Demonstration, Discussion Response to Teaching: Reinforcement Needed Discharge Recommendations Plan Patient will perform bed mobility and transfer training, balance and endurance training, functional strengthening, stair training, gait training, and education, to improve functional mobility and independence at home. Therapy Discharge Recommendati: Home & Family, Post Acute PT Time/GCodes Time In: 1325 Time Out: 1338 Total Billed Treatment Time: 13 Total Billed Treatment 1 visit KIANA 13' KYLE NARAYAN PT Oct 20, 2021 13:52
[2021-10-20] MEDS ORDERED: TROUGH ORDER-PHARMACY XX NR (19:00)
[2021-10-20] MEDS ORDERED: LORazepam INJ 2 MG/ML (ATIVAN) VIAL ONE (20:20)
[2021-10-20] MEDS: LORazepam INJ 2 MG/ML (ATIVAN) VIAL IVP PRN (20:21)
--- NOTE | 2021-10-20 20:25 | Progress Note - Hospitalist ---
Subjective HPI/CC On Admission Date Seen by Provider: Oct 20, 2021 Time Seen by Provider: 10:40 Patient is a 61-year-old female with a past medical history of asthma and hypothyroidism who presented to outside hospital due to shortness of breath. She is intubated and sedated so all history is obtained from the records. She reportedly called EMS due to acute onset shortness of breath. On arrival to her house EMS found her with oxygen saturation of 57% and severe air hunger. They attempted to place her on CPAP but she was unable to tolerate so she was given Ativan in route. She escalated to needing to be intubated at outside hospital. CT chest was done which revealed multilobar pneumonia with worse in the right upper lobe. It was also negative for pulmonary embolism. CT head and C-spine were done and were negative for acute findings. She was started on cefepime and transferred here for further management. She is able to answer some yes and no questions but very minimal. She denies any pain. She shakes her head when asked if she was short of breath. Otherwise she is not able to participate in exam. Subjective/Events-last exam She has been extubated. She is feeling better. She denies shortness of breath. She denies pain. She wants water. Objective Exam Vital Signs Vital Signs Date Time Temp Pulse Resp B/P (MAP) Pulse Ox O2 Delivery O2 Flow Rate FiO2 10/20/21 20:12 90 Nasal Cannula 5.00 10/20/21 19:35 36.7 10/20/21 18:00 103 19 160/85 10/20/21 11:54 28 Capillary Refill : General Appearance: No Apparent Distress, Obese Respiratory: No Respiratory Distress, Wheezing Cardiovascular: Regular Rate, Rhythm, No Murmur Gastrointestinal: Normal Bowel Sounds, Non Tender, Soft Extremity: Normal Inspection, No Pedal Edema Neurologic/Psychiatric: Alert, Normal Mood/Affect Skin: Normal Color, Warm/Dry Results/Procedures Lab Laboratory Tests 10/20/21 04:50 Patient resulted labs reviewed. Imaging: Reviewed Imaging Report Assessment/Plan Assessment and Plan Assess & Plan/Chief Complaint Acute hypoxic respiratory failure Sepsis due to pneumonia Asthma Extubated this morning TeleICU following Stop Vanc Continue Cefepime MAT protocol Continue steroids Hypothyroidism HTN No acute needs, continue home meds as able DVT ppx: Lovenox Critical Care Critically Ill Patient Diagnosis/Problems Diagnosis/Problems (1) Acute respiratory failure Status: Acute Qualifiers: Respiratory failure complication: hypoxia and hypercapnia Qualified Codes: J96.01 - Acute respiratory failure with hypoxia; J96.02 - Acute respiratory failure with hypercapnia (2) CAP (community acquired pneumonia) Status: Acute Qualifiers: Laterality: right Lung location: upper lobe of lung Qualified Codes: J18.9 - Pneumonia, unspecified organism (3) Asthma Status: Acute Qualifiers: Asthma complication type: with acute exacerbation CIARA MARCH MD Oct 20, 2021 20:25
[2021-10-20 21:22] LABS: ABG BASE EXCESS -7.7 MMOL/L (-2.5-2.5); ABG OXYGEN SATURATION 91 % (94-100); ABG PCO2 49 MMHG (35-45); ABG PO2 65 MMHG (79-93); ABG TCO2 20.3 MMOL/L (21.0-31.0)
[2021-10-20 21:23] LABS: ALLENS TEST POSITIVE; INSPIRED O2 30%; PATIENT TEMP 37.2; VENTILATOR NO
[2021-10-20 21:24] LABS: ABG PH 7.21 (7.37-7.43)
[2021-10-20 21:30] VITALS: BP 178/111
[2021-10-20 23:42] LABS: ABG BASE EXCESS -6.8 MMOL/L (-2.5-2.5); ABG OXYGEN SATURATION 99 % (94-100); ABG PCO2 36 MMHG (35-45); ABG PO2 98 MMHG (79-93); ABG TCO2 19.6 MMOL/L (21.0-31.0)
[2021-10-20 23:43] LABS: ALLENS TEST POSITIVE
[2021-10-20 23:44] LABS: ABG PH 7.32 (7.37-7.43); INSPIRED O2 40%; PATIENT TEMP 36; VENTILATOR YES
[2021-10-21 02:44] VITALS: BP 165/101
[2021-10-21] MEDS: CEFEPIME INJECTION 1,000 MG in NS (IVPB) 50 ML IV SCH ×4 (03:27→22:03)
[2021-10-21] MEDS: LORazepam INJ 2 MG/ML (ATIVAN) VIAL IVP PRN ×2 (03:40→10:46)
[2021-10-21 04:30] LABS: BASOPHILS % (AUTO) 0 % (0-10); EOSINOPHILS % (AUTO) 0 % (0-10); HEMATOCRIT 35 % (35-52); HEMOGLOBIN 11.4 g/dL (11.5-16.0); LYMPHOCYTES % (AUTO) 5 % (12-44); MEAN CORPUSCULAR HEMOGLOBIN 30 pg (25-34); MEAN CORPUSCULAR HGB CONC 32 g/dL (32-36); MEAN CORPUSCULAR VOLUME 91 fL (80-99); MEAN PLATELET VOLUME 10.2 fL (9.0-12.2); MONOCYTES # (AUTO) 1.4 10^3/uL (0.0-1.0); MONOCYTES % (AUTO) 7 % (0-12); NEUTROPHILS # (AUTO) 16.8 10^3/uL (1.8-7.8); NEUTROPHILS % (AUTO) 86 % (42-75); PLATELET COUNT 247 10^3/uL (130-400); WHITE BLOOD COUNT 19.4 10^3/uL (4.3-11.0)
[2021-10-21 04:38] LABS: ABG BASE EXCESS -5.4 MMOL/L (-2.5-2.5); ABG OXYGEN SATURATION 98 % (94-100); ABG PCO2 35 MMHG (35-45); ABG PH 7.35 (7.37-7.43); ABG PO2 82 MMHG (79-93); ABG TCO2 20.5 MMOL/L (21.0-31.0)
[2021-10-21 04:43] LABS: INSPIRED O2 30% BIPAP; PATIENT TEMP 35.8; VENTILATOR NO
[2021-10-21 04:45] LABS: ALBUMIN 3.3 GM/DL (3.2-4.5); POTASSIUM 4.2 MMOL/L (3.6-5.0)
[2021-10-21 04:46] LABS: CALCIUM 8.7 MG/DL (8.5-10.1)
[2021-10-21 04:49] LABS: BILIRUBIN,TOTAL 0.5 MG/DL (0.1-1.0)
[2021-10-21 04:50] LABS: PHOSPHORUS 3.8 MG/DL (2.3-4.7)
[2021-10-21 04:51] LABS: CREATININE SERUM 1.03 MG/DL (0.60-1.30)
[2021-10-21 04:54] LABS: MAGNESIUM 2.4 MG/DL (1.6-2.4)
[2021-10-21 05:53] LABS: BAND NEUTROPHILS 1 %; LYMPHOCYTES % (MANUAL) 4 %; MONOCYTES % (MANUAL) 7 %; NEUTROPHILS % (MANUAL) 88 %; RBC MORPH NORMAL
[2021-10-21] MEDS: POTASSIUM CL 10MEQ/50ML IVPB 50 ML IV SCH (05:54)
[2021-10-21] MEDS: KCL 20 MEQ TAB (K-DUR) PO SCH (05:55)
[2021-10-21] MEDS: inSUlin ASPART (NovoLOG) 1 UNIT/0.01 ML (CHARGE PER UNIT) SC SCH ×4 (05:55→21:40)
[2021-10-21] MEDS: MAGNESIUM 1 GM/100 ML IVPB 100 ML IV SCH (05:55)
[2021-10-21 07:01] VITALS: BP 137/80
--- NOTE | 2021-10-21 07:01 | Diagnostic Imaging Report ---
INDICATION: Post extubation, ICU management. History of respiratory failure. TECHNIQUE: Single view chest 5:08 AM. CORRELATION STUDY: 10/20/2021 FINDINGS: Endotracheal tube and gastric tube have been removed. Heart size remains enlarged. Mediastinum stable. Vasculature overall appears slightly increased from prior. Increased predominantly perihilar and basilar areas of opacity may be reflective of atelectasis owing to hypoventilation versus infiltrate. IMPRESSION: 1. Interval extubation. 2. Increasing perihilar and basilar opacities may be reflective of hypoventilation with atelectasis versus infiltrate. Vasculature also appears slightly more prominent from prior. Dictated by: Dictated on workstation # [id number]
[2021-10-21] MEDS: PANTOPRAZOLE 40 MG (PROTONIX) VIAL IV SCH (07:45)
[2021-10-21] MEDS: RT-ALBUTEROL SULF 2.5 MG/3 ML PRE-MIX VIAL INH SCH ×2 (09:48→18:49)
[2021-10-21] MEDS: ENOXAPARIN 40 MG/0.4 ML (LOVENOX) SYR SC SCH (10:04)
--- NOTE | 2021-10-21 10:06 | Physical Therapy Daily Note ---
PT Daily Note-Current Subjective Patient in bed pre tx, agrees to PT but patient is very lethargic and confused, has no complaints of pain. Appearance Patient in bed post tx with nurse call, phone, tray, all needs met. Mental Status Patient Orientation: Person, Confused, Mumbles Attachments: Oxygen, Bowden Catheter Transfers SCALE: Activities may be completed with or without assistive devices. 2-Mimodoafdw-sexmkjw completes the activity by him/herself with no assistance from a helper. 5-Set-up or Clean-up Assistance-helper sets up or cleans up; patient completes activity. [place] assists only prior to or following the activity. 4-Supervision or Touching Assistance-helper provides verbal cues and/or touching/steadying and/or contact guard assistance as patient completes activity. Assistance may be provided throughout the activity or intermittently. 3-Partial/Moderate Assistance-helper does LESS THAN HALF the effort. [place] lifts, holds or supports trunk or limbs, but provides less than half the effort. 2-Substantial/Maximal Assistance-helper does MORE THAN HALF the effort. [place] lifts or holds trunk or limbs and provides more than half the effort. 5-Yuwccziix-lquwwc does ALL the effort. Patient does none of the effort to complete the activity. Or, the assistance of 2 or more helpers is required for the patient to complete the activity. If activity was not attempted, code reason: 7-Patient Refused. 9-Not Applicable-not attempted and the patient did not perform the activity before the current illness, exacerbation or injury. 10-Not Attempted due to Environmental Limitations-(lack of equipment, weather restraints, etc.). 88-Not Attempted due to Medical Conditions or Safety Concerns. Roll Left & Right (QC): 3 Sit to Lying (QC): 3 Lying to Sitting/Side of Bed(Q: 3 Sit to Stand (QC): 3 mod assist for supine <-> sit, min assist for sit to stand Gait Training Distance: 20' Walk 10 feet (QC): 3 Gait Persons Needed: 1 Gait Assistive Device: None Patient ambulated about 20' to the door and back to bed, she was much more unsteady than yesterday, needed min assist to maintain balance, cues for direction and safety, she would benefit from a walker next tx Exercises Supine Ex: Ankle pumps, Heel Slides Supine Reps: 20 Treatments bed mobility and transfers, ambulation, LE strengthening Assessment Current Status: Poor Progress more confusion and unsteadiness during transfers and ambulation PT Assisted Goals Occupational Health Nursing Director Goals PT Occupational Health Nursing Director Goals Time Frame: Oct 27, 2021 Roll Left & Right (QC): 6 Sit to Lying (QC): 6 Lying-Sitting on Side/Bed(QC): 6 Sit to Stand (QC): 6 Chair/Kwn-wj-Bthhg Xfer(QC): 6 Walk 10 feet (QC): 6 Walk 50ft with 2 Turns (QC): 6 Walk 150 ft (QC): 6 PT Plan Problem List Problem List: Activity Tolerance, Functional Strength, Safety, Balance, Gait, Transfer, Bed Mobility, ROM Treatment/Plan Treatment Plan: Continue Plan of Care Treatment Plan: Education, Functional Activity Anuja, Functional Strength, Gait, Safety, Therapeutic Exercise, Transfers Treatment Duration: Oct 27, 2021 Frequency: 6 times per week Estimated Hrs Per Day: .25 hour per day Patient and/or Family Agrees t: Yes Safety Risks/Education Patient Education: Gait Training, Transfer Techniques, Correct Positioning, Safety Issues Teaching Recipient: Patient Teaching Methods: Demonstration, Discussion Response to Teaching: Reinforcement Needed Time/GCodes Time In: 930 Time Out: 945 Total Billed Treatment Time: 15 Total Billed Treatment 1 visit FA KYLE CAMPOS PT Oct 21, 2021 10:06
--- NOTE | 2021-10-21 10:59 | Tele-ICU Progress Note ---
Subjective Date Seen by a Provider: Oct 21, 2021 Time Seen by a Provider: 10:58 Subjective/Events-last exam (Tele-ICU Physician , Progress Note ) Available chart/ vitals / labs / Images reviewed Video assessment done using teleICU camera, rest of exam as per RN Discussed with RN , EXAM PER RN Events overnight : Afebrile FiO2 - 30 I/O = Drips: Hospital course: (10/19) 61 y F from other hospital with AMS, resp failure PNA INTUBATED 10/19 EXTUBATED A/P Acute resp failure - will try SBT today - PAP low , AAO , 30 % -10/19 EXTUBATED , placed on BIPAP with tachypnea with met acidosis - 01/03 30% rr 16 tv500 -try to get back NC Suspected br -spam - most likley to decrease steroids today SM 80 q 8 h Suspected PNA - on empiric abx , improving cxr - consider narroe down - covid neg PCR Lines : (Central Line Necessity Reviewed) Bowden: OG: Nutrition: Analgesia: Anxiety/ delirium VTE Prophylaxis: lorie 40 Stress Ulcer Prophylaxis: ppi Plans in collaboration with bedside consultants and IM MDs. Discussed with RN to reach out if any questions or concerns A total of 33 minutes of critical care time was devoted to this patient today, required to treat and/or prevent further deterioration of critical care condition ( as above) . Sepsis Event Evaluation Height, Weight, BMI Height: 5'4" Weight: 160lbs. oz. 72.225761xw; 31.03 BMI Method:Stated Exam Exam Patient acknowledged, consented, and participated in this virtual visit which was conducted using real time audio/video Vital Signs Date Time Temp Pulse Resp B/P (MAP) Pulse Ox O2 Delivery O2 Flow Rate FiO2 10/21/21 10:00 94 30 144/77 97 NIV Bilevel 30.00 10/21/21 09:48 96 Nasal Cannula 2.00 10/21/21 09:00 74 16 137/84 98 NIV Bilevel 30.00 10/21/21 08:19 98 NIV Bilevel 30 10/21/21 08:00 36.0 10/21/21 08:00 78 15 134/74 99 NIV Bilevel 30.00 10/21/21 07:01 78 16 99 30.00 10/21/21 07:00 80 15 137/80 98 NIV Bilevel 30.00 10/21/21 07:00 78 10/21/21 06:00 78 16 125/70 98 NIV Bilevel 30.00 10/21/21 05:00 89 16 145/85 98 NIV Bilevel 30.00 10/21/21 04:00 89 16 147/82 97 NIV Bilevel 30.00 10/21/21 04:00 98 NIV Bilevel 30 10/21/21 03:52 36.7 10/21/21 03:00 95 19 145/85 96 NIV Bilevel 30.00 10/21/21 02:44 92 16 96 30.00 10/21/21 02:00 109 20 165/101 97 NIV Bilevel 30.00 10/21/21 01:00 97 16 150/80 97 NIV Bilevel 30.00 10/21/21 01:00 97 10/21/21 00:00 101 21 150/89 99 NIV Bilevel 30.00 10/21/21 00:00 98 NIV Bilevel 30 10/20/21 23:41 36.4 10/20/21 23:27 117 26 99 NIV Bilevel 30.00 10/20/21 23:00 116 24 159/100 100 NIV Bilevel 40.00 10/20/21 22:00 120 22 157/85 99 NIV Bilevel 40.00 10/20/21 21:30 138 28 96 40.00 10/20/21 21:26 142 23 96 NIV Bilevel 40.00 10/20/21 21:00 149 24 178/111 90 Nasal Cannula 1.50 10/20/21 20:36 140 22 181/95 93 Nasal Cannula 1.50 10/20/21 20:12 90 Nasal Cannula 5.00 10/20/21 20:00 92 High Flow N/C 10.00 10/20/21 19:35 36.7 10/20/21 19:11 115 18 177/91 95 Nasal Cannula 1.50 10/20/21 19:00 109 10/20/21 18:00 103 19 160/85 93 Nasal Cannula 1.50 10/20/21 17:00 105 13 158/84 92 Nasal Cannula 1.50 10/20/21 16:56 96 Nasal Cannula 3.00 10/20/21 16:00 36.9 10/20/21 16:00 105 21 139/85 93 Nasal Cannula 1.50 10/20/21 15:00 109 27 141/78 94 Nasal Cannula 1.50 10/20/21 14:02 106 10 137/80 95 Nasal Cannula 1.50 10/20/21 12:45 107 10/20/21 12:00 37.0 106 16 133/71 95 Nasal Cannula 2.00 10/20/21 11:54 37.0 106 96 28 10/20/21 11:43 96 Nasal Cannula 3.00 10/20/21 11:00 106 23 121/81 95 Nasal Cannula 2.00 I & O 10/21/21 07:00 Intake Total 1362.5 ml Output Total 1500 ml Balance -137.5 ml Height & Weight Height: 5'4" Weight: 160lbs. oz. 72.835267jf; 31.03 BMI Method:Stated General Appearance: No Apparent Distress, Obese HEENT: PERRL/EOMI, Moist Mucous Membranes; No Scleral Icterus (L), No Scleral Icterus (R); Other (ETT and OG in place) Neck: Normal Inspection, Supple Respiratory: No Respiratory Distress, Wheezing Cardiovascular: Regular Rate, Rhythm, No Murmur Extremity: Normal Inspection, No Pedal Edema Neurologic/Psychiatric: Alert, Normal Mood/Affect Skin: Normal Color, Warm/Dry Results Lab Laboratory Tests 10/20/21 04:50 10/21/21 04:15 Assessment/Plan Assessment/Plan ` GIACOMO WOODARD MD Oct 21, 2021 10:59
[2021-10-21 11:32] VITALS: BP 142/71
--- NOTE | 2021-10-21 11:39 | Occupational Therapy Eval ---
OT Evaluation-General/PLF Medical Diagnosis Admission Date Oct 19, 2021 at 05:21 Medical Diagnosis: sepsis, acute resp failure Onset Date: Oct 19, 2021 Therapy Diagnosis Therapy Diagnosis: decreased ADL status Height/Weight Height (Feet): 5 Height (Inches): 4 Weight (Pounds): 160 Precautions Precautions/Isolations: Aspiration, Fall Prevention, Standard Precautions, Pressure Ulcer Referral Physician: Nemo Referral Reason: Evaluation/Treatment Medical History Additional Medical History Hypothyroidism, thyroid cancer, thyroidectomy, asthma, HTN, and PNA. Current History OSH d/t SOB and acute respiratory failure. Chest CT revealed multilobar PNA in R lung Social History Home: Single Level Current Living Status: Alone Entry Into Home: Level Entry ADL-Prior Level of Function SCALE: Activities may be completed with or without assistive devices. 6-Blfygcxxbr-luemjvn completes the activity by him/herself with no assistance from a helper. 5-Set-up or Clean-up Assistance-helper sets up or cleans up; patient completes activity. [place] assists only prior to or following the activity. 4-Supervision or Touching Assistance-helper provides verbal cues and/or touching/steadying and/or contact guard assistance as patient completes activity. Assistance may be provided throughout the activity or intermittently. 3-Partial/Moderate Assistance-helper does LESS THAN HALF the effort. [place] lifts, holds or supports trunk or limbs, but provides less than half the effort. 2-Substantial/Maximal Assistance-helper does MORE THAN HALF the effort. [place] lifts or holds trunk or limbs and provides more than half the effort. 1-Wnrcluyox-fqwbgo does ALL the effort. Patient does none of the effort to complete the activity. Or, the assistance of 2 or more helpers is required for the patient to complete the activity. If activity was not attempted, code reason: 7-Patient Refused. 9-Not Applicable-not attempted and the patient did not perform the activity before the current illness, exacerbation or injury. 10-Not Attempted due to Environmental Limitations-(lack of equipment, weather restraints, etc.). 88-Not Attempted due to Medical Conditions or Safety Concerns. ADL PLOF Comments Pt lives alone in single story home. She reports being IND in all ADLs and functional mobility (no AD) prior to incident. Self Care: Independent Functional Cognition: Independent DME/Equipment: Tub/Shower Drive Self: Yes OT Current Status Subjective Pt was lethargic d/t receiving Ativan recently. Pt was agreeable to OT eval/tx, but she did not open her eyes during session and she frequently slurred s peech/mumbled d/t medicated state. Mental Status/Objective Patient Orientation: Person, Situation, [place] Attachments: Bowden Catheter, Oxygen Current Hand Dominance: Right Upper Extremity ROM bilaterally WFL Upper Extremity Strength bilaterally grossly 3+/5 ADL-Treatment Eating (QC): 6 (Pt reports able to bring cup to mouth in order to take drink) Lower Body Dressing (QC): 88 (not attempted due to medical condition/safety concerns) On/Off Footwear (QC): 88 (not attempted due to medical condition/safety concerns) Toileting Hygiene (QC): 88 (not attempted due to medical condition/safety concerns) Other Treatments No OOB activities completed at this time d/t lethargic state. Pt nodded her head or gave simple answers to eval questions. Pt participated in UE screen, and education provided on various UE exercises, all planes. Pt demo'd understanding and instructed to complete exercsies as she has more energy. Pt's son at bedside, educated on benefits of tub transfer bench for energy conservation, and educated on energy conservation techniques, he verbalized understanding. Pt left in bed with call light in reach and all needs met. Education OT Patient Education: Correct positioning, Energy conservation, Exercise program, Modified ADL techniques, Progress toward Goal/Update tx plan, Purpose of tx/functional activities, Rehab process Teaching Recipient: Patient, Family Teaching Methods: Demonstration, Discussion Response to Teaching: Verbalize Understanding, Return Demonstration OT Custodial Goals Custodial Goals Time Frame: Oct 31, 2021 Eating (QC): 6 Oral Hygiene (QC): 6 Toileting Hygiene (QC): 6 Shower/Bathe Self (QC): 4 (Supervision) Upper Body Dressing (QC): 5 Lower Body Dressing (QC): 4 (SBA) On/Off Footwear (QC): 5 Additional Goals: 1-Demonstrate ADL Tasks, 2-Verbalize Understanding, 3- ImproveStrength/Anuja 1=Demonstrate adherence to instructed precautions during ADL tasks. 2=Patient will verbalize/demonstrate understanding of assistive devices/modifi cations for ADL. 3=Patient will improve strength/tolerance for activity to enable patient to perform ADL's. OT Education/Plan Problem List/Assessment Assessment: Decreased Activ Tolerance, Decreased UE Strength, Impaired Funct Balance, Impaired I ADL's, Impaired Self-Care Skills Discharge Recommendations Plan/Recommendations: Continue POC Equpiment Recommendations-D/C: Extended Bath Bench Treatment Plan/Plan of Care Patient would benefit from OT for education, treatment and training to promote independence in ADL's, mobility, safety and/or upper extremity function for ADL's. Plan of Care: ADL Retraining, Functional Mobility, UE Funct Exercise/Act Treatment Duration: Oct 31, 2021 Frequency: 3 times per week (3-5x per week) Estimated Hrs Per Day: .25 hour per day Rehab Potential: Fair Time/GCodes Start Time: 11:17 Stop Time: 11:28 Total Time Billed (hr/min): 11 Billed Treatment Time 1, EVM (11') MUNA ABDUL OT Oct 21, 2021 11:39
[2021-10-21] MEDS: methylPREDNISolone 40 MG/ML (Solu-MEDROL) VIAL IV SCH ×2 (15:17→22:03)
[2021-10-21 16:08] VITALS: BP 152/86
[2021-10-21 19:34] VITALS: BP 176/87
--- NOTE | 2021-10-21 22:48 | Progress Note - Hospitalist ---
Subjective HPI/CC On Admission Date Seen by Provider: Oct 21, 2021 Time Seen by Provider: 09:35 Patient is a 61-year-old female with a past medical history of asthma and hypothyroidism who presented to outside hospital due to shortness of breath. She is intubated and sedated so all history is obtained from the records. She reportedly called EMS due to acute onset shortness of breath. On arrival to her house EMS found her with oxygen saturation of 57% and severe air hunger. They attempted to place her on CPAP but she was unable to tolerate so she was given Ativan in route. She escalated to needing to be intubated at outside hospital. CT chest was done which revealed multilobar pneumonia with worse in the right upper lobe. It was also negative for pulmonary embolism. CT head and C-spine were done and were negative for acute findings. She was started on cefepime and transferred here for further management. She is able to answer some yes and no questions but very minimal. She denies any pain. She shakes her head when asked if she was short of breath. Otherwise she is not able to participate in exam. Subjective/Events-last exam She is feeling better. She denies shortness of breath. She is about to get up with therapy. Objective Exam Vital Signs Vital Signs Date Time Temp Pulse Resp B/P (MAP) Pulse Ox O2 Delivery O2 Flow Rate FiO2 10/21/21 22:06 90 20 97 30.00 10/21/21 19:34 37.0 176/87 (116) Nasal Cannula 10/21/21 08:19 30 Capillary Refill : General Appearance: No Apparent Distress, Obese Respiratory: Lungs Clear, No Respiratory Distress Cardiovascular: Regular Rate, Rhythm, No Murmur Gastrointestinal: Normal Bowel Sounds, Soft Extremity: Normal Inspection, No Pedal Edema Neurologic/Psychiatric: Alert, No Motor/Sensory Deficits Skin: Normal Color, Warm/Dry Results/Procedures Lab Laboratory Tests 10/21/21 04:15 Patient resulted labs reviewed. Imaging: Reviewed Imaging Report Assessment/Plan Assessment and Plan Assess & Plan/Chief Complaint Acute hypoxic respiratory failure Sepsis due to pneumonia Asthma Extubated this morning TeleICU following Continue Cefepime MAT protocol Continue steroids Transfer to 4th floor Hypothyroidism HTN No acute needs, continue home meds as able DVT ppx: Lovenox Diagnosis/Problems Diagnosis/Problems (1) Acute respiratory failure Status: Acute Qualifiers: Respiratory failure complication: hypoxia and hypercapnia Qualified Codes: J96.01 - Acute respiratory failure with hypoxia; J96.02 - Acute respiratory failure with hypercapnia (2) CAP (community acquired pneumonia) Status: Acute Qualifiers: Laterality: right Lung location: upper lobe of lung Qualified Codes: J18.9 - Pneumonia, unspecified organism (3) Asthma Status: Acute Qualifiers: Asthma complication type: with acute exacerbation CIARA MARCH MD Oct 21, 2021 22:48
[2021-10-22] VITALS: BP 138/67
[2021-10-22] MEDS: CEFEPIME INJECTION 1,000 MG in NS (IVPB) 50 ML IV SCH ×2 (03:14→09:45)
[2021-10-22 04:03] VITALS: BP 151/74
[2021-10-22] MEDS: inSUlin ASPART (NovoLOG) 1 UNIT/0.01 ML (CHARGE PER UNIT) SC SCH ×4 (05:34→20:13)
[2021-10-22 05:40] LABS: BASOPHILS % (AUTO) 0 % (0-10); EOSINOPHILS % (AUTO) 0 % (0-10); HEMATOCRIT 34 % (35-52); HEMOGLOBIN 10.9 g/dL (11.5-16.0); LYMPHOCYTES # (AUTO) 0.8 10^3/uL (1.0-4.0); LYMPHOCYTES % (AUTO) 7 % (12-44); MEAN CORPUSCULAR HEMOGLOBIN 29 pg (25-34); MEAN CORPUSCULAR HGB CONC 32 g/dL (32-36); MEAN CORPUSCULAR VOLUME 90 fL (80-99); MEAN PLATELET VOLUME 10.4 fL (9.0-12.2); MONOCYTES # (AUTO) 0.3 10^3/uL (0.0-1.0); MONOCYTES % (AUTO) 3 % (0-12); NEUTROPHILS # (AUTO) 9.5 10^3/uL (1.8-7.8); NEUTROPHILS % (AUTO) 89 % (42-75); PLATELET COUNT 230 10^3/uL (130-400); WHITE BLOOD COUNT 10.7 10^3/uL (4.3-11.0)
[2021-10-22 05:49] LABS: ALBUMIN 3.3 GM/DL (3.2-4.5); POTASSIUM 4.4 MMOL/L (3.6-5.0)
[2021-10-22 05:51] LABS: CALCIUM 8.7 MG/DL (8.5-10.1)
[2021-10-22 05:52] LABS: TOTAL PROTEIN 5.9 GM/DL (6.4-8.2)
[2021-10-22 05:54] LABS: BILIRUBIN,TOTAL 0.5 MG/DL (0.1-1.0)
[2021-10-22 05:56] LABS: CREATININE SERUM 0.83 MG/DL (0.60-1.30)
[2021-10-22] MEDS: KCL 20 MEQ TAB (K-DUR) PO SCH (05:56)
[2021-10-22] MEDS: MAGNESIUM 1 GM/100 ML IVPB 100 ML IV SCH (05:56)
[2021-10-22] MEDS: POTASSIUM CL 10MEQ/50ML IVPB 50 ML IV SCH (05:56)
[2021-10-22 05:58] LABS: MAGNESIUM 2.6 MG/DL (1.6-2.4)
[2021-10-22] MEDS: RT-ALBUTEROL SULF 2.5 MG/3 ML PRE-MIX VIAL INH SCH ×2 (07:15→19:28)
[2021-10-22 07:45] VITALS: BP 144/67
[2021-10-22] MEDS: ENOXAPARIN 40 MG/0.4 ML (LOVENOX) SYR SC SCH (09:45)
[2021-10-22] MEDS: PANTOPRAZOLE 40 MG (PROTONIX) VIAL IV SCH (09:45)
--- NOTE | 2021-10-22 11:28 | Occupational Ther Daily Note ---
OT Current Status-Daily Note Subjective Pt in bed, agreeable to OT Tx. Respiratory therapy present for home O2 study. Mental Status/Objective Patient Orientation: Person, Place, Situation ADL-Treatment Therapy Code Descriptions/Definitions Functional [place] Measure: 0=Not Assessed/NA 4=Minimal Assistance 1=Total Assistance 5=Supervision or Setup 2=Maximal Assistance 6=Modified [place] 3=Moderate Assistance 7=Complete IndependenceSCALE: Activities may be completed with or without assistive devices. 3-Weenvubqtl-ealzkvx completes the activity by him/herself with no assistance from a helper. 5-Set-up or Clean-up Assistance-helper sets up or cleans up; patient completes activity. [place] assists only prior to or following the activity. 4-Supervision or Touching Assistance-helper provides verbal cues and/or touching/steadying and/or contact guard assistance as patient completes activity. Assistance may be provided throughout the activity or intermittently. 3-Partial/Moderate Assistance-helper does LESS THAN HALF the effort. [place] lifts, holds or supports trunk or limbs, but provides less than half the effort. 2-Substantial/Maximal Assistance-helper does MORE THAN HALF the effort. [place] lifts or holds trunk or limbs and provides more than half the effort. 5-Sryjjwyme-nalvdt does ALL the effort. Patient does none of the effort to complete the activity. Or, the assistance of 2 or more helpers is required for the patient to complete the activity. If activity was not attempted, code reason: 7-Patient Refused. 9-Not Applicable-not attempted and the patient did not perform the activity before the current illness, exacerbation or injury. 10-Not Attempted due to Environmental Limitations-(lack of equipment, weather restraints, etc.). 88-Not Attempted due to Medical Conditions or Safety Concerns. Toileting Hygiene (QC): 4 (SBA) Toilet Transfer (QC): 4 (SBA) Other Treatment Pt in bed, transferred supine to sit EOB without assistance, then used FWW to perform functional mobility in [facility], CGA-SBA. Pt felt more steady today, attempted mobility without AD back to her room, required CGA. Pt's O2 saturation dropped below 90% when talking, but increased back above 90% with cues for pursed lip breathing. Pt returned to her room, sat EOB for rest break. Pt then transferred into bathroom, CGA, then onto toilet. Pt completed toileting, then transferred to recliner. Post tx, pt up in recliner, call light in reach and all needs met. Education OT Patient Education: Correct positioning, Energy conservation, Exercise program, Modified ADL techniques, Progress toward Goal/Update tx plan, Purpose of tx/functional activities, Rehab process Teaching Recipient: Patient Teaching Methods: Discussion Response to Teaching: Verbalize Understanding OT Fluid Dynamicist Goals Fluid Dynamicist Goals Time Frame: Oct 31, 2021 Eating (QC): 6 Oral Hygiene (QC): 6 Toileting Hygiene (QC): 6 Shower/Bathe Self (QC): 4 (Supervision) Upper Body Dressing (QC): 5 Lower Body Dressing (QC): 4 (SBA) On/Off Footwear (QC): 5 Additional Goals: 1-Demonstrate ADL Tasks, 2-Verbalize Understanding, 3- ImproveStrength/Anuja 1=Demonstrate adherence to instructed precautions during ADL tasks. 2=Patient will verbalize/demonstrate understanding of assistive devices/ modifications for ADL. 3=Patient will improve strength/tolerance for activity to enable patient to perform ADL's. OT Education/Plan Problem List/Assessment Assessment: Decreased Activ Tolerance, Decreased Safety Aware, Decreased UE Strength, Impaired Funct Balance, Impaired I ADL's, Impaired Self-Care Skills Discharge Recommendations Plan/Recommendations: Continue POC Treatment Plan/Plan of Care Patient would benefit from OT for education, treatment and training to promote independence in ADL's, mobility, safety and/or upper extremity function for ADL's. Plan of Care: ADL Retraining, Functional Mobility, UE Funct Exercise/Act Treatment Duration: Oct 31, 2021 Frequency: 3 times per week (3-5x per week) Estimated Hrs Per Day: .25 hour per day Rehab Potential: Fair Time/GCodes Start Time: 10:54 Stop Time: 11:07 Total Time Billed (hr/min): 13 Billed Treatment Time 1, MUNA LOREDO OT Oct 22, 2021 11:28
[2021-10-22 11:36] VITALS: BP 169/79
[2021-10-22] MEDS ORDERED: CEFD300C3 PO (11:47)
[2021-10-22] MEDS ORDERED: DEXA4TAB PO (11:47)
--- NOTE | 2021-10-22 14:30 | Physical Therapy Daily Note ---
PT Daily Note-Current Subjective Upon arrival, pt was laying in bed, pt agrees to PT. Pain Comment: Pt reports no pain, just low energy. Mental Status Patient Orientation: Person, Place, Time Transfers SCALE: Activities may be completed with or without assistive devices. 2-Bcctkhhjrq-grcapbq completes the activity by him/herself with no assistance from a helper. 5-Set-up or Clean-up Assistance-helper sets up or cleans up; patient completes activity. [place] assists only prior to or following the activity. 4-Supervision or Touching Assistance-helper provides verbal cues and/or touching/steadying and/or contact guard assistance as patient completes activity. Assistance may be provided throughout the activity or intermittently. 3-Partial/Moderate Assistance-helper does LESS THAN HALF the effort. [place] lifts, holds or supports trunk or limbs, but provides less than half the effort. 2-Substantial/Maximal Assistance-helper does MORE THAN HALF the effort. [place] lifts or holds trunk or limbs and provides more than half the effort. 2-Ivedoirva-llaocv does ALL the effort. Patient does none of the effort to com plete the activity. Or, the assistance of 2 or more helpers is required for the patient to complete the activity. If activity was not attempted, code reason: 7-Patient Refused. 9-Not Applicable-not attempted and the patient did not perform the activity before the current illness, exacerbation or injury. 10-Not Attempted due to Environmental Limitations-(lack of equipment, weather restraints, etc.). 88-Not Attempted due to Medical Conditions or Safety Concerns. Sit to Lying (QC): 4 Lying to Sitting/Side of Bed(Q: 4 Sit to Stand (QC): 4 Gait Training Does the Patient Walk?: Yes Distance: 200' Walk 10 feet (QC): 4 Walk 50 ft with 2 Turns(QC): 4 Walk 150 ft (QC): 4 Gait Persons Needed: 1 Gait Assistive Device: FWW Pt ambulated from room round valenzuela and back to room. Pt states that she does not use a walker at home, PT had pt ambulate with and without a FWW. Pt was steady with WWF, pt demonstrated min LOB and unsteadiness without it. Therapist PT came to talked with pt and suggested for a short time pt use a FWW. Exercises Supine Ex: Ankle pumps, Heel Slides, Straight leg raise, Hip abd/add Supine Reps: 10 Treatments Pt performed and completed all Exs listed above, Pt ambulated from room around valenzuela and back. Once PT was concluded, pt had call jessika and baldo in reach and all needs met. Pt requests a soda, and reports her hospital phone is not working, pts RN arrives to talk with pt, just as PT was exiting the pts room. Assessment Current Status: Good Progress Pt demonstrates low energy this tx session, but was able to complete all tasks, without difficulty. Pt may possibly be DC today. PT Prison Goals Butadiene Compressor Operator Goals PT Prison Goals Time Frame: Oct 27, 2021 Roll Left & Right (QC): 6 Sit to Lying (QC): 6 Lying-Sitting on Side/Bed(QC): 6 Sit to Stand (QC): 6 Chair/Oib-xq-Undzf Xfer(QC): 6 Walk 10 feet (QC): 6 Walk 50ft with 2 Turns (QC): 6 Walk 150 ft (QC): 6 PT Plan Problem List Problem List: Activity Tolerance, Functional Strength, Gait Treatment/Plan Treatment Plan: Continue Plan of Care Treatment Plan: Education, Functional Activity Anuja, Functional Strength, Gait, Safety, Therapeutic Exercise, Transfers Treatment Duration: Oct 27, 2021 Frequency: 6 times per week Estimated Hrs Per Day: .25 hour per day Patient and/or Family Agrees t: Yes Safety Risks/Education Patient Education: Gait Training, Safety Issues Teaching Recipient: Patient Teaching Methods: Discussion Response to Teaching: Verbalize Understanding Time/GCodes Time In: 1328 Time Out: 1400 Total Billed Treatment Time: 32 Total Billed Treatment 1, EX (20), GT (12) CHEKO HOOVER [employer] Oct 22, 2021 14:30
--- NOTE | 2021-10-22 15:55 | Progress Note - Hospitalist ---
Subjective HPI/CC On Admission Date Seen by Provider: Oct 22, 2021 Time Seen by Provider: 10:20 Patient is a 61-year-old female with a past medical history of asthma and hypothyroidism who presented to outside hospital due to shortness of breath. She is intubated and sedated so all history is obtained from the records. She reportedly called EMS due to acute onset shortness of breath. On arrival to her house EMS found her with oxygen saturation of 57% and severe air hunger. They attempted to place her on CPAP but she was unable to tolerate so she was given Ativan in route. She escalated to needing to be intubated at outside hospital. CT chest was done which revealed multilobar pneumonia with worse in the right upper lobe. It was also negative for pulmonary embolism. CT head and C-spine were done and were negative for acute findings. She was started on cefepime and transferred here for further management. She is able to answer some yes and no questions but very minimal. She denies any pain. She shakes her head when asked if she was short of breath. Otherwise she is not able to participate in exam. Subjective/Events-last exam She is doing better. She is not needing any oxygen. She denies shortness of breath. She was able to walk in the valenzuela with therapy. Objective Exam Vital Signs Vital Signs Date Time Temp Pulse Resp B/P (MAP) Pulse Ox O2 Delivery O2 Flow Rate FiO2 10/22/21 13:00 78 10/22/21 11:36 37.1 17 169/79 (109) 97 Room Air 10/22/21 08:00 2.00 10/21/21 08:19 30 Capillary Refill : General Appearance: No Apparent Distress, WD/WN Respiratory: Lungs Clear, No Respiratory Distress Cardiovascular: Regular Rate, Rhythm, No Murmur Gastrointestinal: Normal Bowel Sounds, Soft Extremity: Normal Inspection, No Pedal Edema Neurologic/Psychiatric: Alert, No Motor/Sensory Deficits, Normal Mood/Affect Skin: Normal Color, Warm/Dry Results/Procedures Lab Laboratory Tests 10/22/21 05:20 Patient resulted labs reviewed. Imaging: Reviewed Imaging Report Assessment/Plan Assessment and Plan Assess & Plan/Chief Complaint Acute hypoxic respiratory failure Sepsis due to pneumonia Asthma Continue Cefepime MAT protocol Transitioned to oral Dexamethasone Hypothyroidism HTN No acute needs, continue home meds as able Debility PT/OT DVT ppx: Lovenox Endotracheally intubated, resolved Diagnosis/Problems Diagnosis/Problems (1) Acute respiratory failure Status: Acute Qualifiers: Respiratory failure complication: hypoxia and hypercapnia Qualified Codes: J96.01 - Acute respiratory failure with hypoxia; J96.02 - Acute respiratory failure with hypercapnia (2) CAP (community acquired pneumonia) Status: Acute Qualifiers: Laterality: right Lung location: upper lobe of lung Qualified Codes: J18.9 - Pneumonia, unspecified organism (3) Asthma Status: Acute Qualifiers: Asthma complication type: with acute exacerbation CIARA MARCH MD Oct 22, 2021 15:55
[2021-10-22 16:29] VITALS: BP 156/79
[2021-10-22] MEDS: CEFDINIR 300 MG (OMNICEF) CAP PO SCH (19:39)
[2021-10-23 00:19] VITALS: BP 166/80
[2021-10-23 06:42] LABS: CALCIUM 8.9 MG/DL (8.5-10.1)
[2021-10-23 06:47] LABS: CREATININE SERUM 0.86 MG/DL (0.60-1.30)
[2021-10-23] MEDS: POTASSIUM CL 10MEQ/50ML IVPB 50 ML IV SCH (06:51)
[2021-10-23] MEDS: MAGNESIUM 1 GM/100 ML IVPB 100 ML IV SCH (06:51)
[2021-10-23] MEDS: KCL 20 MEQ TAB (K-DUR) PO SCH (06:51)
[2021-10-23] MEDS: inSUlin ASPART (NovoLOG) 1 UNIT/0.01 ML (CHARGE PER UNIT) SC SCH (06:51)
[2021-10-23 08:00] VITALS: BP 170/97
[2021-10-23] MEDS: CEFDINIR 300 MG (OMNICEF) CAP PO SCH (08:37)
[2021-10-23] MEDS: RT-ALBUTEROL SULF 2.5 MG/3 ML PRE-MIX VIAL INH SCH (09:26)
--- NOTE | 2021-10-23 09:47 | Physical Therapy Daily Note ---
PT Daily Note-Current Subjective Patient agrees to PT. Mental Status Patient Orientation: Normal For Age Transfers SCALE: Activities may be completed with or without assistive devices. 7-Gemuxcdmje-iunddfn completes the activity by him/herself with no assistance from a helper. 5-Set-up or Clean-up Assistance-helper sets up or cleans up; patient completes activity. [place] assists only prior to or following the activity. 4-Supervision or Touching Assistance-helper provides verbal cues and/or touching/steadying and/or contact guard assistance as patient completes activity. Assistance may be provided throughout the activity or intermittently. 3-Partial/Moderate Assistance-helper does LESS THAN HALF the effort. [place] lifts, holds or supports trunk or limbs, but provides less than half the effort. 2-Substantial/Maximal Assistance-helper does MORE THAN HALF the effort. [place] lifts or holds trunk or limbs and provides more than half the effort. 2-Lsbsiyrhk-qqnvtg does ALL the effort. Patient does none of the effort to complete the activity. Or, the assistance of 2 or more helpers is required for the patient to complete the activity. If activity was not attempted, code reason: 7-Patient Refused. 9-Not Applicable-not attempted and the patient did not perform the activity befo re the current illness, exacerbation or injury. 10-Not Attempted due to Environmental Limitations-(lack of equipment, weather re straints, etc.). 88-Not Attempted due to Medical Conditions or Safety Concerns. Sit to Lying (QC): 6 Lying to Sitting/Side of Bed(Q: 6 Sit to Stand (QC): 6 Gait Training Distance: 500' Walk 10 feet (QC): 6 Walk 50 ft with 2 Turns(QC): 6 Walk 150 ft (QC): 6 Gait Assistive Device: None safe and functional with no deviation Stair Training Stair Training: Handrails/: 2 handrails #of Steps: 12 1 Step (curb) (QC): 6 4 Steps (QC): 6 12 Steps (QC): 6 Stairs: Pattern: Step to Assessment Patient is currently at independent PLOF with all gross motor skills. Patient reports she is up independently in room. Plan dismissal today to home with family. PT Whipped Topping Supervisor Goals Usp Goals PT Whipped Topping Supervisor Goals Time Frame: Oct 27, 2021 Roll Left & Right (QC): 6 Sit to Lying (QC): 6 Lying-Sitting on Side/Bed(QC): 6 Sit to Stand (QC): 6 Chair/Nni-vh-Iyskm Xfer(QC): 6 Walk 10 feet (QC): 6 Walk 50ft with 2 Turns (QC): 6 Walk 150 ft (QC): 6 PT Plan Treatment/Plan Treatment Plan: Discontinue PT, goals met Treatment Plan: Education, Functional Activity Anuja, Functional Strength, Gait, Safety, Therapeutic Exercise, Transfers Treatment Duration: Oct 27, 2021 Frequency: 6 times per week Estimated Hrs Per Day: .25 hour per day Patient and/or Family Agrees t: Yes Time/GCodes Time In: 815 Time Out: 826 Total Billed Treatment Time: 11 Total Billed Treatment 1 visit FA 11min DELIA LUONG PT Oct 23, 2021 09:47
[2021-10-23] MEDS: ENOXAPARIN 40 MG/0.4 ML (LOVENOX) SYR SC SCH (10:36)
[2021-10-23] MEDS ORDERED: ALBU2.5V4 INH (11:26)
[2021-10-23] MEDS ORDERED: RT-ALBUINH IH (11:26)
[2021-10-23 11:35] VITALS: BP 170/97
--- NOTE | 2021-10-23 14:44 | Discharge Summary ---
Discharge Summary Hospital Course Problems/Dx: (1) Severe sepsis Status: Acute (2) Acute respiratory failure Status: Acute Qualifiers: Qualified Codes: J96.01 - Acute respiratory failure with hypoxia; J96.02 - Acute respiratory failure with hypercapnia (3) CAP (community acquired pneumonia) Status: Acute Qualifiers: Qualified Codes: J18.9 - Pneumonia, unspecified organism (4) Asthma Status: Acute Qualifiers: (5) Endotracheally intubated Status: Acute Hospital Course Date of Admission: Oct 19, 2021 at 05:21 Admission Diagnosis : Severe sepsis due to pneumonia Family Physician/Provider: MerissaLocal Physician Date of Discharge: 10/23/21 Discharge Diagnosis: Severe sepsis due to pneumonia Hospital Course: Keli Veronica is a 61 year old female who was admitted from an outside hospital where she presented with respiratory failure and was intubated. She was severely hypoxic with hypercapnia. She underwent a CT which showed multifocal pneumonia. She was treated with IV antibiotics. She was quickly able to be extubated. She improved quidkly. She did not require any supplemental oxgyen at the time of discharge. She was given a course of Omnicef to complete as an outpatient. She was also given steroids and albuterol for asthma. She was discharged home in stable condition with her son. She should follow up with her primary doctor in about a week. Labs and Pending Lab Test: Laboratory Tests 10/22/21 15:56: Glucometer 112H 10/22/21 20:11: Glucometer 140H 10/23/21 05:56: Sodium Level 141, Potassium Level 4.0, Chloride Level 108H, Carbon Dioxide Level 22, Anion Gap 11, Blood Urea Nitrogen 33H, Creatinine 0.86, Estimat Glomerular Filtration Rate 77, BUN/Creatinine Ratio 38, Glucose Level 95, Calcium Level 8.9, Magnesium Level 2.4 10/23/21 06:11: Glucometer 97 Microbiology 10/19/21 Gram Stain - Final, Complete 10/19/21 Sputum Culture - Final, Complete Usual upper respiratory cassidy Home Meds Active Proair Hfa (Albuterol Sulfate) 1 Puff Puff 2 Puff IH Q4H PRN 30 Days 1 PUFF = 90 MCG Albuterol Sulfate 2.5 Mg/3 Ml (0.083 %) Vial.neb 2.5 Mg INH Q6H PRN 30 Days Cefdinir 300 Mg Capsule 300 Mg PO BID 5 Days Dexamethasone 4 Mg Tablet 4 Mg PO DAILY 4 Days Reported Vitamin D3 (Cholecalciferol (Vitamin D3)) 125 Mcg (5000 Unit) Tablet 125 Mcg PO DAILY Tylenol Extra Strength (Acetaminophen) 500 Mg Tablet 500 Mg PO Q8H PRN Multivitamin 1 Each Tablet 1 Each PO DAILY Vagifem (Estradiol) 10 Mcg Tablet 10 Mcg VG TWICE WEEKLY Synthroid (Levothyroxine Sodium) 150 Mcg Tablet 150 Mcg PO DAILY Assessment/Pt Instructions See instructions Discharge Planning: >30 minutes discharge planning Discharge Instructions Discharge Diet: No Restrictions Activity as Tolerated: Yes Discharge Physical Examination Vital Signs Vital Signs Date Time Temp Pulse Resp B/P (MAP) Pulse Ox O2 Delivery O2 Flow Rate FiO2 10/23/21 11:35 37.2 76 16 170/97 98 Room Air 10/22/21 08:00 2.00 10/21/21 08:19 30 General Appearance: No Apparent Distress, Anxious Respiratory: Lungs Clear, No Respiratory Distress Cardiovascular: Regular Rate, Rhythm, No Murmur Gastrointestinal: Normal Bowel Sounds, Soft Extremity: Normal Inspection, No Pedal Edema Neurologic/Psychiatric: Alert, No Motor/Sensory Deficits Allergies: Coded Allergies: Nitrofurantoin Macrocrystal (Verified Allergy, Unknown, 03/26/14) nitrofurantoin (Verified Allergy, Unknown, 03/26/14) ofloxacin (Verified Allergy, Unknown, 03/26/14) Uncoded Allergies: PRN VK (Allergy, Unknown, 03/26/14) Z PACK (Allergy, Unknown, 03/26/14) Discharge Summary Date of Admission Oct 19, 2021 at 05:21 Date of Discharge Oct 23, 2021 at 11:35 Discharge Date: Oct 23, 2021 Discharge Time: 11:35 Admission Diagnosis Acute hypoxic respiratory failure Discharge Diagnosis Acute hypoxic respiratory failure Severe sepsis due to pneumonia Asthma (1) Acute respiratory failure Status: Acute Qualifiers: Qualified Codes: J96.01 - Acute respiratory failure with hypoxia; J96.02 - Acute respiratory failure with hypercapnia (2) CAP (community acquired pneumonia) Status: Acute Qualifiers: Qualified Codes: J18.9 - Pneumonia, unspecified organism (3) Asthma Status: Acute Qualifiers: CIARA MARCH MD Oct 23, 2021 14:44
== END 2021-10-23 11:35 | disposition home or self-care (01) | DRG 871 ==
LOC: ICU 05:21 → 4TH 10-21 11:03
PROVIDERS: ADMIT Family Medicine; ATTEND Internal Medicine
PROC: 5A1945Z Respiratory Ventilation, 24-96 Consecutive Hours (ICD-10-PCS; principal; 2021-10-19)
PROC: 5A09357 Assistance with Respiratory Ventilation, Less than 24 Consecutive Hours, Continuous Positive Airway Pressure (ICD-10-PCS; 2021-10-20)
DX: A41.9 Sepsis, unspecified organism (principal); J18.9 Pneumonia, unspecified organism; J96.02 Acute respiratory failure with hypercapnia; J96.01 Acute respiratory failure with hypoxia; J45.909 Unspecified asthma, uncomplicated; E03.9 Hypothyroidism, unspecified; I10 Essential (primary) hypertension; Z20.822 Contact with and (suspected) exposure to COVID-19; Z88.8 Allergy status to other drugs, medicaments and biological substances
CPT/HCPCS: 36415; 71045; 80048; 80053; 82805; 82947; 83735; 84100; 84478; 85007; 85025; 85027; 87070; 87081; 87205; 87636; 94003; 94640; 94660; 94760; 94761; 94799

== ENCOUNTER 2021-12-28 16:25 | Emergency (ER) | payer OTHER ==
[~2021-12-28] VITALS: Ht 162 cm; Wt 79.0 kg
[~2021-12-28 16:25] MED LIST changes: +ACET-2267 PO; +ALBU2.5V4 INH; +CALC-250 PO; +CEFD300C3 PO; +DEXA4TAB PO; +ESTR10TA VG; +LEVO150T PO; +MTP100TCR PO; +MULT-1136 PO; +POTA99CA PO; +RT-ALBUINH IH; +TRIA1TAB5 PO
[2021-12-28] MEDS ORDERED: ONDANSETRON 4 MG/2 ML (SDV) Z0FRAN IVP STA (17:03)
--- NOTE | 2021-12-28 17:06 | ED General ---
General Chief Complaint: Dizziness/Syncope Stated Complaint: DIZZY Nursing Triage Note: PT TO ED W/ C/O DIZZINESS ONSET X1 WK W/ NAUSEA ONSET TODAY. PT REPORTS WAS RECENTLY STARTED ON 2 NEW BP MEDS X2 WKS AGO. PT REPORTS RECENT HX OF ACUTE RESPIRATORY FAILURE ET CARDIAC CATH X3 WKS AGO. DOES REPORT A BREATHING TX PRIOR TO ARRIVAL. NO OTHER C/O VOICED. History of Present Illness Date Seen by Provider: Dec 28, 2021 Time Seen by Provider: 16:50 Initial Comments 61-year-old female presents for nausea and weakness, she was dehydrated approximately 1 week ago. She has been trying to take sports drinks and water but with continued symptoms. She has mild nausea today. Timing/Duration: 2-3 Days, 1 Week Associated Systoms: No Chest Pain, No Cough, No Fever/Chills, No Headaches; Loss of Appetite, Malaise, Nausea/Vomiting; No Shortness of Air, No Syncope; Weakness Allergies and Home Medications Allergies Coded Allergies: Nitrofurantoin Macrocrystal (Verified Allergy, Unknown, 03/26/14) nitrofurantoin (Verified Allergy, Unknown, 03/26/14) ofloxacin (Verified Allergy, Unknown, 03/26/14) Uncoded Allergies: PRN VK (Allergy, Unknown, 03/26/14) Z PACK (Allergy, Unknown, 03/26/14) Patient Home Medication List Home Medication List Reviewed: Yes Acetaminophen (Tylenol Extra Strength) 500 Mg Tablet, 500 MG PO Q8H PRN for PAIN-MILD (1-4), (Reported) Entered as Reported by: DAVY GUERRERO on 10/20/21 1016 Albuterol Sulfate (Albuterol Sulfate) 2.5 Mg/3 Ml (0.083 %) Vial.neb, 2.5 MG INH BID, (Reported) Entered as Reported by: DAVY GUERRERO on 11/24/21 1529 Albuterol Sulfate (Proair Hfa) 1 Puff Puff, 2 PUFF IH Q4H PRN for SHORTNESS OF BREATH, (Reported) Entered as Reported by: DAVY GUERRERO on 11/24/21 1529 Cholecalciferol (Vitamin D3) (Vitamin D3) 125 Mcg (5000 Unit) Tablet, 125 MCG PO DAILY, (Reported) Entered as Reported by: DAVY GUERRERO on 10/20/21 1017 Estradiol (Vagifem) 10 Mcg Tablet, 10 MCG VG TWICE WEEKLY, (Reported) Entered as Reported by: DAVY GUERRERO on 10/20/21 1015 Levothyroxine Sodium (Synthroid) 150 Mcg Tablet, 150 MCG PO DAILY, (Reported) Entered as Reported by: DAVY GUERRERO on 10/20/21 1015 Metoprolol Succinate (Metoprolol Succinate) 100 Mg Tab.er.24h, 100 MG PO DAILY Prescribed by: FELIPA SNOW on 11/26/21 0923 Multivitamin (Multivitamin) 1 Each Tablet, 1 EACH PO DAILY, (Reported) Entered as Reported by: DAVY GUERRERO on 10/20/21 1016 Potassium Citrate (Potassium) 99 Mg Capsule, 99 MG PO DAILY, (Reported) Entered as Reported by: DAVY GUERRERO on 11/24/21 1531 Triamterene/Hydrochlorothiazid (Triamterene-Hctz 75-50 mg Tab) 75 Mg-50 Mg Tablet, 1 EA PO DAILY Prescribed by: FELIPA SNOW on 11/26/21 0923 Review of Systems Review of Systems Constitutional: see HPI; No fever; malaise, weakness Respiratory: no symptoms reported, see HPI Cardiovascular: no symptoms reported, see HPI; No chest pain Gastrointestinal: see HPI, nausea All Other Systems Reviewed Negative Unless Noted: Yes Past Lnvrpnx-Aamiix-Zhxhvl Hx Patient Social History Tobacco Use?: No Use of E-Cig and/or Vaping dev: No Substance use?: No Alcohol Use?: No Pt feels they are or have been: No Past Medical History Surgery/Hospitalization HX: CARDIAC CATH X3WKS AGO, "NECK" SURGERY HTN Gallbladder, Hysterectomy, Thyroidectomy Respiratory: Yes Pneumonia Cardiac: Yes Hypertension Neurological: Yes 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 Genitourinary: Yes (BLADDER SLING) Gastrointestinal: Yes (UMBILICAL HERNIA ) Musculoskeletal: No Endocrine: No Hypothyroidsim HEENT: No Cancer: Yes Thyroid Did You Recieve Any Treatments: Yes What Type of Treatment Did You: Radiation Psychosocial: No Integumentary: No Blood Disorders: Yes Adverse Reaction/Blood Tranf: Yes (PT STATES SHE ALMOST WHEN SHE GOT HER LIVER RESECTION) Family Medical History Reviewed Nursing Family Hx No Pertinent Family Hx Physical Exam Vital Signs Vital Signs - First Documented 12/28/21 16:31 Temp 36.8 Pulse 73 Resp 20 B/P (MAP) 159/89 (112) Pulse Ox 98 O2 Delivery Room Air Capillary Refill : Less Than 3 Seconds Height, Weight, BMI Height: 5'4" Weight: 160lbs. oz. [id number]; 30.00 BMI Method:Stated General Appearance: No Apparent Distress, WD/WN HEENT: PERRL/EOMI, TMs Normal, Normal ENT Inspection, Pharynx Normal Neck: Full Range of Motion, Normal Inspection, Non Tender, Supple Respiratory: Chest Non Tender, Lungs Clear, Normal Breath Sounds Cardiovascular: Regular Rate, Rhythm, No Edema, No Murmur, Normal Peripheral Pulses Gastrointestinal: Normal Bowel Sounds, Non Tender, Soft Neurologic/Psychiatric: Alert, Oriented x3, No Motor/Sensory Deficits, Normal Mood/Affect Skin: Normal Color, Warm/Dry Progress/Results/Core Measures Suspected Sepsis SIRS Temperature: Pulse: 73 Respiratory Rate: 20 Laboratory Tests 12/28/21 17:40: White Blood Count 8.6 Blood Pressure 159 /89 Mean: 112 Laboratory Tests 12/28/21 17:40: Creatinine 1.40H, Platelet Count 292, Total Bilirubin 0.4 Results/Orders Lab Results Laboratory Tests Test 12/28/21 17:23 12/28/21 17:40 Range/Units Urine Color YELLOW Urine Clarity CLEAR Urine pH 6.5 5-9 Urine Specific [place] <=1.005 1.016-1.022 Urine Protein NEGATIVE NEGATIVE Urine Glucose (UA) NEGATIVE NEGATIVE Urine Ketones NEGATIVE NEGATIVE Urine Nitrite NEGATIVE NEGATIVE Urine Bilirubin NEGATIVE NEGATIVE Urine Urobilinogen 0.2 < = 1.0 MG/DL Urine Leukocyte Esterase TRACE H NEGATIVE Urine RBC (Auto) NEGATIVE NEGATIVE Urine RBC NONE /HPF Urine WBC 2-5 /HPF Urine Squamous Epithelial Cells 5-10 /HPF Urine Crystals NONE /LPF Urine Bacteria TRACE /HPF Urine Casts NONE /LPF Urine Mucus NEGATIVE /LPF Urine Culture Indicated NO White Blood Count 8.6 4.3-11.0 10^3/uL Red Blood Count 4.52 3.80-5.11 10^6/uL Hemoglobin 13.4 11.5-16.0 g/dL Hematocrit 40 35-52 % Mean Corpuscular Volume 88 80-99 fL Mean Corpuscular Hemoglobin 30 25-34 pg Mean Corpuscular Hemoglobin Concent 34 32-36 g/dL Red Cell Distribution Width 13.1 10.0-14.5 % Platelet Count 292 130-400 10^3/uL Mean Platelet Volume 9.3 9.0-12.2 fL Immature Granulocyte % (Auto) 0 % Neutrophils (%) (Auto) 54 42-75 % Lymphocytes (%) (Auto) 34 12-44 % Monocytes (%) (Auto) 9 0-12 % Eosinophils (%) (Auto) 2 0-10 % Basophils (%) (Auto) 1 0-10 % Neutrophils # (Auto) 4.6 1.8-7.8 10^3/uL Lymphocytes # (Auto) 2.9 1.0-4.0 10^3/uL Monocytes # (Auto) 0.8 0.0-1.0 10^3/uL Eosinophils # (Auto) 0.2 0.0-0.3 10^3/uL Basophils # (Auto) 0.1 0.0-0.1 10^3/uL Immature Granulocyte # (Auto) 0.0 0.0-0.1 10^3/uL Sodium Level 139 135-145 MMOL/L Potassium Level 3.9 3.6-5.0 MMOL/L Chloride Level 102 98-107 MMOL/L Carbon Dioxide Level 24 21-32 MMOL/L Anion Gap 13 5-14 MMOL/L Blood Urea Nitrogen 22 H 7-18 MG/DL Creatinine 1.40 H 0.60-1.30 MG/DL Estimat Glomerular Filtration Rate 43 BUN/Creatinine Ratio 16 Glucose Level 115 H 70-105 MG/DL Calcium Level 10.0 8.5-10.1 MG/DL Corrected Calcium 9.8 8.5-10.1 MG/DL Total Bilirubin 0.4 0.1-1.0 MG/DL Aspartate Amino Transf (AST/SGOT) 22 5-34 U/L Alanine Aminotransferase (ALT/SGPT) 25 0-55 U/L Alkaline Phosphatase 70 40-136 U/L Total Creatine Kinase 70 29-168 U/L Creatine Kinase MB 1.0 <6.6 NG/ML Total Protein 7.4 6.4-8.2 GM/DL Albumin 4.3 3.2-4.5 GM/DL My Orders Orders - MARIELA GIRON Cbc With Automated Diff (12/28/21 17:03) Comprehensive Metabolic Panel (12/28/21 17:03) Creatine Kinase (12/28/21 17:03) Creatine Kinase Mb (12/28/21 17:03) Ua Culture If Indicated (12/28/21 17:03) Ondansetron Injection (Zofran Injectio (12/28/21 17:03) Ed Iv/Invasive Line Start (12/28/21 17:03) Ns Iv 1000 Ml (Sodium Chloride 0.9%) (12/28/21 17:15) Vital Signs/I&O 12/28/21 16:31 Temp 36.8 Pulse 73 Resp 20 B/P (MAP) 159/89 (112) Pulse Ox 98 O2 Delivery Room Air Capillary Refill : Less Than 3 Seconds Blood Pressure Mean: 112 Progress Note : Time: 16:50 Progress Note Patient seen and evaluated, will give 1 L of fluid, Zofran 8 mg, labs and re- evaluate. 1805 patient reports significant improvement in symptoms. Labs all essentially normal. Discharge instructions and return precautions reviewed with her. Departure Impression Primary Impression: Weakness Disposition: 01 HOME, SELF-CARE Condition: Improved Departure-Patient Inst. Decision time for Depature: 18:05 Referrals: NILA EASLEY (PCP/Family) Primary Care Physician Patient Instructions: Dehydration, Adult (DC), Generalized Weakness (DC) Add. Discharge Instructions: Use Meclizine over the counter, every 8 hours for dizziness. Increase water intake, 16 oz every 2 hours. Drink Sports-Rehydration products or Pedialyte, 16 oz four times daily. Take a multi-vitamin daily. Follow up with your Primary Care Provider. Return to the Emergency Dept for new, urgent healthcare needs. All discharge instructions reviewed with patient and/or family. Voiced understanding. MARIELA GIRON Dec 28, 2021 17:06
[2021-12-28] MEDS ORDERED: NS IV 1000 ML 1,000 ML IV SCH (17:15)
[2021-12-28 17:27] LABS: BILIRUBIN,URINE NEGATIVE (NEGATIVE); CLARITY,URINE CLEAR; COLOR,URINE YELLOW; GLUCOSE, URINE (UA) NEGATIVE (NEGATIVE); KETONES,URINE NEGATIVE (NEGATIVE); LEUKOCYTE ESTERASE ,URINE TRACE (NEGATIVE); NITRITE,URINE NEGATIVE (NEGATIVE); PH,URINE 6.5 (5-9); PROTEIN,URINE NEGATIVE (NEGATIVE)
[2021-12-28 17:38] LABS: BACTERIA,URINE TRACE /HPF
[2021-12-28 17:49] LABS: BASOPHILS # (AUTO) 0.1 10^3/uL (0.0-0.1); BASOPHILS % (AUTO) 1 % (0-10); EOSINOPHILS # (AUTO) 0.2 10^3/uL (0.0-0.3); EOSINOPHILS % (AUTO) 2 % (0-10); HEMATOCRIT 40 % (35-52); HEMOGLOBIN 13.4 g/dL (11.5-16.0); LYMPHOCYTES # (AUTO) 2.9 10^3/uL (1.0-4.0); LYMPHOCYTES % (AUTO) 34 % (12-44); MEAN CORPUSCULAR HEMOGLOBIN 30 pg (25-34); MEAN CORPUSCULAR HGB CONC 34 g/dL (32-36); MEAN CORPUSCULAR VOLUME 88 fL (80-99); MEAN PLATELET VOLUME 9.3 fL (9.0-12.2); MONOCYTES # (AUTO) 0.8 10^3/uL (0.0-1.0); MONOCYTES % (AUTO) 9 % (0-12); NEUTROPHILS # (AUTO) 4.6 10^3/uL (1.8-7.8); NEUTROPHILS % (AUTO) 54 % (42-75); PLATELET COUNT 292 10^3/uL (130-400); WHITE BLOOD COUNT 8.6 10^3/uL (4.3-11.0)
[2021-12-28 18:06] LABS: ALBUMIN 4.3 GM/DL (3.2-4.5)
[2021-12-28 18:07] LABS: POTASSIUM 3.9 MMOL/L (3.6-5.0)
[2021-12-28 18:09] LABS: TOTAL PROTEIN 7.4 GM/DL (6.4-8.2)
[2021-12-28 18:11] LABS: BILIRUBIN,TOTAL 0.4 MG/DL (0.1-1.0)
[2021-12-28 18:13] LABS: CREATININE SERUM 1.4 MG/DL (0.60-1.30)
[2021-12-28 18:22] VITALS: BP 150/92
== END 2021-12-28 18:22 | disposition home or self-care (01) ==
LOC: EDUNIT# 16:25 → ER 16:26
DX: R53.1 Weakness (principal); R11.2 Nausea with vomiting, unspecified
CPT/HCPCS: 36415; 80053; 81000; 82550; 82553; 85025

== ENCOUNTER → 2022-10-30 | Outpatient (CLI) | payer OTHER ==
[~2022-10-30] MED LIST changes: +ALBU8.5H6 IH; +IOHEXOL 350 MG/ML 100 ML (OMNIPAQUE 350) VIAL IV ONE; +NS 100 ML (IVPB) BAG IV ONE; -RT-ALBUINH IH
--- NOTE | 2022-10-30 11:47 | Diagnostic Imaging Report ---
CLINICAL INDICATION: Patient with left-sided neck pain and swelling. BB placed at site. Patient states infected tooth. Patient has history of thyroid cancer and history of thyroid removal. EXAM: Axial CT scan of the neck soft tissue performed with 75 mL of Omnipaque 350 IV contrast. Sagittal and coronal reformatted images are created. Auto Exposure Controls were utilized during the CT exam to meet ALARA standards for radiation dose reduction. COMPARISON: CT scan of the neck with and without contrast dated 03/26/2014. FINDINGS: The nasopharynx, oropharynx, hypopharynx, and laryngeal soft tissue structures are unremarkable with no mass seen. There is stable enlargement of the posterior lingual adenoid soft tissue. Dental streak artifact seen obscuring portions of the oral cavity. The visualized oral cavity, sublingual and submandibular regions are unremarkable. There is no significant lymphadenopathy. There is an 8 mm x 6 mm lymph node in the left level 5A/B region which is beneath the BB marker. This lymph node previously measured 4 mm x 6 mm on the prior study. Limited visualization intracranial structures are unremarkable. There is progression of globe calcification as small size is seen which may be seen with viscus bulbi. Visualized upper lung mckeon are clear. There are hypertrophic spurs involving the cervical spine. IMPRESSION: 1: There is no interval development of neck soft tissue mass. 2: There is slight increased size of a small lymph node involving the left lateral aspect of the neck in the region of the BB marker which is not significantly enlarged by size criteria. 3.: Stable prominence of posterior lingual soft tissue, likely reactive. Dictated by: Dictated on workstation # [id number]
== END ==
LOC: RAD 09:44
PROVIDERS: ATTEND Otolaryngology Otolaryngology/Facial Plastic Surgery
DX: R59.0 Localized enlarged lymph nodes (principal); M54.2 Cervicalgia; H92.02 Otalgia, left ear
CPT/HCPCS: 70491

== ENCOUNTER 2022-11-16 08:35 | Emergency (ER) | payer OTHER ==
[~2022-11-16] VITALS: Ht 162 cm; Wt 77.0 kg
[~2022-11-16 08:35] MED LIST changes: -IOHEXOL 350 MG/ML 100 ML (OMNIPAQUE 350) VIAL IV ONE; -NS 100 ML (IVPB) BAG IV ONE
--- NOTE | 2022-11-16 08:48 | ED Abdominal Pain ---
General Chief Complaint: Abdominal/GI Problems Stated Complaint: VOMITING | NAUSEA | ABD PAIN Nursing Triage Note: PT STATES SHE HAD A CT DONE 2-3 WEEKS AGO AND HAS HAD NAUSEA SINCE. ABD AND VOMITING STARTED YESTERDAY. Source of Information: Patient Exam Limitations: No Limitations History of Present Illness Date Seen by Provider: Nov 16, 2022 Time Seen by Provider: 08:48 Initial Comments Patient is a 62-year-old female who presents to the emergency department with a chief complaint of nausea over the last 2 to 3 weeks with abdominal pain onset yesterday and vomiting all night long last night. Patient states too many episodes to count. Nothing black/coffee grounds no blood in her vomit. She states that she has had a prior liver mass removed as well as cholecystectomy. She has had umbilical hernia repair approximately 5 or more years ago. She has had a bladder sling. She states movement standing up and laying flat make her pain worse. She points to the mid abdomen as the source of her pain. She denies fevers or chills. She has been having normal bowel movements. No urinary complaints. No fevers or chills. No shortness of breath or cough. Remote history of thyroid cancer. She did have a CT scan of her neck with IV contrast about 3 weeks ago and states that her nausea has been persistent since that time. Timing/Duration: 24 Hours (vomiting) Severity/Quality: Moderate, Aching Location: Other (mid abdomen) Radiation: No Radiation Activities at Onset: None Modifying Factors: Worsens With Lying down, Worsens With Movement Associated Symptoms: Nausea/Vomiting Allergies and Home Medications Allergies Coded Allergies: Nitrofurantoin Macrocrystal (Verified Allergy, Unknown, 03/26/14) nitrofurantoin (Verified Allergy, Unknown, 03/26/14) ofloxacin (Verified Allergy, Unknown, 03/26/14) Uncoded Allergies: PRN VK (Allergy, Unknown, 03/26/14) Z PACK (Allergy, Unknown, 03/26/14) Patient Home Medication List Home Medication List Reviewed: Yes Acetaminophen (Tylenol Extra Strength) 500 Mg Tablet, 500 MG PO Q8H PRN for PAIN-MILD (1-4), (Reported) Entered as Reported by: DAVY GUERRERO on 10/20/21 1016 Albuterol Sulfate (Albuterol Sulfate) 2.5 Mg/3 Ml (0.083 %) Vial.neb, 2.5 MG INH BID, (Reported) Entered as Reported by: DAVY GUERRERO on 11/24/21 1529 Albuterol Sulfate (Ventolin Hfa) 1 Puff Puff, 2 PUFF IH Q4H PRN for SHORTNESS OF BREATH, (Reported) Entered as Reported by: DAVY GUERRERO on 11/24/21 1529 Cholecalciferol (Vitamin D3) (Vitamin D3) 125 Mcg (5000 Unit) Tablet, 125 MCG PO DAILY, (Reported) Entered as Reported by: DAVY GUERRERO on 10/20/21 1017 Estradiol (Vagifem) 10 Mcg Tablet, 10 MCG VG TWICE WEEKLY, (Reported) Entered as Reported by: DAVY GUERRERO on 10/20/21 1015 Levothyroxine Sodium (Synthroid) 150 Mcg Tablet, 150 MCG PO DAILY, (Reported) Entered as Reported by: DAVY GUERRERO on 10/20/21 1015 Metoprolol Succinate (Metoprolol Succinate) 100 Mg Tab.er.24h, 100 MG PO DAILY Prescribed by: FELIPA SNOW on 11/26/21 0923 Multivitamin (Multivitamin) 1 Each Tablet, 1 EACH PO DAILY, (Reported) Entered as Reported by: DAVY GUERRERO on 10/20/21 1016 Potassium Citrate (Potassium) 99 Mg Capsule, 99 MG PO DAILY, (Reported) Entered as Reported by: DAVY GUERRERO on 11/24/21 1531 Triamterene/Hydrochlorothiazid (Triamterene-Hctz 75-50 mg Tab) 75 Mg-50 Mg Tablet, 1 EA PO DAILY Prescribed by: FELIPA SNOW on 11/26/21 0923 Review of Systems Review of Systems Constitutional: see HPI EENTM: No Symptoms Reported Respiratory: No Symptoms Reported Cardiovascular: No Symptoms Reported Gastrointestinal: Abdominal Pain, Nausea, Vomiting Genitourinary: No Symptoms Reported Musculoskeletal: no symptoms reported Skin: no symptoms reported All Other Systems Reviewed Negative Unless Noted: Yes Past Ivbgczo-Vyyndo-Hepimo Hx Patient Social History Tobacco Use?: No Substance use?: No Alcohol Use?: No Past Medical History Surgery/Hospitalization HX: CARDIAC CATH X3WKS AGO, "NECK" SURGERY HTN Gallbladder, Hysterectomy, Thyroidectomy Respiratory: Yes Pneumonia Cardiac: Yes Hypertension 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 Genitourinary: Yes (BLADDER SLING) Gastrointestinal: Yes (UMBILICAL HERNIA ) Musculoskeletal: No Endocrine: No Hypothyroidsim HEENT: No Cancer: Yes Thyroid Did You Recieve Any Treatments: Yes What Type of Treatment Did You: Radiation Psychosocial: No Integumentary: No Blood Disorders: Yes Adverse Reaction/Blood Tranf: Yes (PT STATES SHE ALMOST WHEN SHE GOT HER LIVER RESECTION) Family Medical History No Pertinent Family Hx Physical Exam Vital Signs Vital Signs - First Documented 11/16/22 08:40 Temp 37.1 Pulse 115 Resp 16 B/P (MAP) 137/87 (104) Pulse Ox 97 O2 Delivery Room Air Capillary Refill : Less Than 3 Seconds Height/Weight/BMI Height: 5'4" Weight: 160lbs. oz. 72.568115lr; 29.00 BMI Method:Stated General Appearance: WD/WN, no apparent distress, obese Neck: normal inspection Respiratory: lungs clear, normal breath sounds, no respiratory distress, no accessory muscle use Cardiovascular: regular rate, rhythm, tachycardia (106) Gastrointestinal: normal bowel sounds, soft, tenderness (RUQ below liver scar) Extremities: normal range of motion, normal inspection Neurologic/Psychiatric: alert, normal mood/affect, oriented x 3 Skin: normal color, warm/dry Progress/Results/Core Measures Results/Orders Lab Results Laboratory Tests Test 11/16/22 09:10 Range/Units White Blood Count 12.3 H 4.3-11.0 10^3/uL Red Blood Count 4.61 3.80-5.11 10^6/uL Hemoglobin 13.6 11.5-16.0 g/dL Hematocrit 41 35-52 % Mean Corpuscular Volume 90 80-99 fL Mean Corpuscular Hemoglobin 30 25-34 pg Mean Corpuscular Hemoglobin Concent 33 32-36 g/dL Red Cell Distribution Width 13.8 10.0-14.5 % Platelet Count 314 130-400 10^3/uL Mean Platelet Volume 9.3 9.0-12.2 fL Immature Granulocyte % (Auto) 0 % Neutrophils (%) (Auto) 90 H 42-75 % Lymphocytes (%) (Auto) 5 L 12-44 % Monocytes (%) (Auto) 5 0-12 % Eosinophils (%) (Auto) 0 0-10 % Basophils (%) (Auto) 0 0-10 % Neutrophils # (Auto) 11.0 H 1.8-7.8 10^3/uL Lymphocytes # (Auto) 0.6 L 1.0-4.0 10^3/uL Monocytes # (Auto) 0.6 0.0-1.0 10^3/uL Eosinophils # (Auto) 0.0 0.0-0.3 10^3/uL Basophils # (Auto) 0.0 0.0-0.1 10^3/uL Immature Granulocyte # (Auto) 0.1 0.0-0.1 10^3/uL Neutrophils % (Manual) 90 % Lymphocytes % (Manual) 4 % Monocytes % (Manual) 6 % Blood Morphology Comment NORMAL Sodium Level 141 135-145 MMOL/L Potassium Level 4.6 3.6-5.0 MMOL/L Chloride Level 106 98-107 MMOL/L Carbon Dioxide Level 24 21-32 MMOL/L Anion Gap 11 5-14 MMOL/L Blood Urea Nitrogen 19 H 7-18 MG/DL Creatinine 1.15 0.60-1.30 MG/DL Estimat Glomerular Filtration Rate 54 BUN/Creatinine Ratio 17 Glucose Level 128 H 70-105 MG/DL Calcium Level 9.9 8.5-10.1 MG/DL Corrected Calcium 9.6 8.5-10.1 MG/DL Total Bilirubin 0.7 0.1-1.0 MG/DL Aspartate Amino Transf (AST/SGOT) 32 5-34 U/L Alanine Aminotransferase (ALT/SGPT) 35 0-55 U/L Alkaline Phosphatase 110 40-136 U/L Total Protein 7.6 6.4-8.2 GM/DL Albumin 4.4 3.2-4.5 GM/DL Lipase 30 8-78 U/L My Orders Orders - GIOVANNY PEÑA MD Ed Iv/Invasive Line Start (11/16/22 08:58) Cbc With Automated Diff (11/16/22 08:58) Comprehensive Metabolic Panel (11/16/22 08:58) Lipase (11/16/22 08:58) Ns Iv 1000 Ml (Sodium Chloride 0.9%) (11/16/22 08:58) Ondansetron Injection (Zofran Injectio (11/16/22 09:00) Manual Differential (11/16/22 09:10) Ct Abdomen/Pelvis Wo (11/16/22 10:07) Medications Given in ED Current Medications Medications Dose Ordered Sig/Ken Route Start Time Stop Time Status Last Admin Dose Admin Ondansetron HCl 4 mg ONCE ONCE IVP 11/16/22 09:00 11/16/22 09:01 DC 11/16/22 09:09 4 MG Vital Signs/I&O 11/16/22 08:40 Temp 37.1 Pulse 115 Resp 16 B/P (MAP) 137/87 (104) Pulse Ox 97 O2 Delivery Room Air Blood Pressure Mean: 104 Progress Progress Note : Time: 11:08 Progress Note And evaluated by me. Evaluation today includes physical exam, CBC, Chem-[address] abdomen and pelvis without IV contrast. Pertinent physical exam findings well-developed well-nourished female in no acute distress. Heart is regular, lungs are clear, abdomen is soft with mild tenderness in the upper ab domen just to the right inferior to her prior scar from cholecystectomy and liver mass removal. He has no involuntary guarding or other peritoneal signs. No lower extremity edema. No focal neurologic deficits. Diagnosis based on history and physical exam, diverticulitis, colitis, pancreatitis. Labs independently reviewed and interpreted by me. Her CBC shows a white count of 12.3 with 90% segmented neutrophils. Normal hemoglobin and hematocrit. Chem-12 is grossly unremarkable with a very minimal increase in glucose at 128. Lipase is normal. CT abdomen and pelvis noncontrast read by radiology demonstrates right renal cyst otherwise no acute findings. Patient is treated in the emergency department with Zofran and IV fluids. She states the Zofran has not helped very much, would appreciate something different for nausea at home. No indications at this time of need for antibiotics. I have instructed the patient to clear liquids throughout the day today. Phenergan as needed for nausea every 4-6 hours. She is instructed to monitor her symptoms for worsening nausea and vomiting, worsening pain and fever. She verbalized understanding of and agreement of the plan of care. All questions are sought and answered. Diagnostic Imaging Diagonstic Imaging: CT Comments [facility] [place], [place] NAME: JAYNE BORJAS MED REC#: [id number] PT STATUS: REG ER : 1960 PHYSICIAN: GIOVANNY PEÑA MD ADMIT DATE: 11/16/22/ER Signed Date of Exam:11/16/22 CT ABDOMEN/PELVIS WO PROCEDURE: CT abdomen and pelvis without contrast. TECHNIQUE: Multiple contiguous axial images were obtained through the abdomen and pelvis without the use of intravenous contrast. Auto Exposure Controls were utilized during the CT exam to meet ALARA standards for radiation dose reduction. INDICATION: Abdominal pain. Nausea. COMPARISON: 10/02/2016. FINDINGS: The heart is unremarkable. A small amount of opacities is seen in the lingula. Cysts are seen in the right kidney with the largest measuring 3.6 x 2.8 cm and demonstrating a bilobed appearance. No hydronephrosis or renal calculi. The urinary bladder is unremarkable. The liver, spleen, pancreas, and adrenal glands have a normal noncontrast CT appearance. The gallbladder is surgically absent. There is no pathologically enlarged mesenteric or retroperitoneal adenopathy. The bowel loops are nondilated. The appendix is visualized in the right lower quadrant and has a normal appearance. There is no free fluid or free air. No acute osseous abnormalities. There is no free air, loculated collection, or adenopathy in the pelvis. IMPRESSION: 1. Bilobed cyst in the mid right kidney measuring 3.6 cm. This is new or increased in size since the prior exam from 2017. Recommend further characterization with renal ultrasound or contrast enhanced study. 2. Small amount of opacities in the lingula which may represent atelectasis and/or infection. The remainder of the included lungs is clear. Dictated by: Dictated on workstation # [id number] Dict: 11/16/22 1027 Trans: 11/16/22 1037 [id number] Interpreted by: DESIREE MEHTA DO Electronically signed by: DESIREE MEHTA DO 11/16/22 1037 Departure Impression Primary Impression: Abdominal pain Qualified Codes: R10.10 - Upper abdominal pain, unspecified Disposition: 01 HOME, SELF-CARE Condition: Stable Departure-Patient Inst. Decision time for Depature: 11:10 Referrals: NILA EASLEY (PCP/Family) Primary Care Physician Patient Instructions: Abdominal Pain, Adult ED Add. Discharge Instructions: You can take the Phenergan tablets one half to a whole tablet every 4-6 hours as needed for nausea. This medication may make you sleepy, do not drive and take this medicine. Clear liquid diet for most of the day today, sip fluids frequently. Monitor your symptoms for any worsening pain or nausea and especially fever. If these worsen please return to the emergency room for reevaluation. Call your primary care doctor for reevaluation later in the week. You do have an enlarging right renal cyst that the radiologist recommends having a renal ultrasound for. Please talk to your primary care doctor about this. Scripts Promethazine HCl (Promethazine Tablet) 25 Mg Tablet 25 MG PO Q6H PRN for NAUSEA/VOMITING, #12 TAB Prov: GIOVANNY PEÑA MD 11/16/22 GIOVANNY PEÑA MD Nov 16, 2022 08:48
[2022-11-16] MEDS ORDERED: NS IV 1000 ML 1,000 ML IV STA (08:58)
[2022-11-16] MEDS ORDERED: ONDANSETRON 4 MG/2 ML (SDV) Z0FRAN IVP ONE (09:00)
[2022-11-16 09:17] LABS: BASOPHILS % (AUTO) 0 % (0-10); EOSINOPHILS % (AUTO) 0 % (0-10); HEMATOCRIT 41 % (35-52); HEMOGLOBIN 13.6 g/dL (11.5-16.0); LYMPHOCYTES # (AUTO) 0.6 10^3/uL (1.0-4.0); LYMPHOCYTES % (AUTO) 5 % (12-44); MEAN CORPUSCULAR HEMOGLOBIN 30 pg (25-34); MEAN CORPUSCULAR HGB CONC 33 g/dL (32-36); MEAN CORPUSCULAR VOLUME 90 fL (80-99); MEAN PLATELET VOLUME 9.3 fL (9.0-12.2); MONOCYTES # (AUTO) 0.6 10^3/uL (0.0-1.0); MONOCYTES % (AUTO) 5 % (0-12); NEUTROPHILS % (AUTO) 90 % (42-75); PLATELET COUNT 314 10^3/uL (130-400); WHITE BLOOD COUNT 12.3 10^3/uL (4.3-11.0)
[2022-11-16 09:30] LABS: ALBUMIN 4.4 GM/DL (3.2-4.5)
[2022-11-16 09:31] LABS: POTASSIUM 4.6 MMOL/L (3.6-5.0)
[2022-11-16 09:32] LABS: CALCIUM 9.9 MG/DL (8.5-10.1)
[2022-11-16 09:33] LABS: TOTAL PROTEIN 7.6 GM/DL (6.4-8.2)
[2022-11-16 09:35] LABS: BILIRUBIN,TOTAL 0.7 MG/DL (0.1-1.0); LYMPHOCYTES % (MANUAL) 4 %; MONOCYTES % (MANUAL) 6 %; NEUTROPHILS % (MANUAL) 90 %
[2022-11-16 09:36] LABS: CREATININE SERUM 1.15 MG/DL (0.60-1.30); RBC MORPH NORMAL
--- NOTE | 2022-11-16 10:37 | Diagnostic Imaging Report ---
PROCEDURE: CT abdomen and pelvis without contrast. TECHNIQUE: Multiple contiguous axial images were obtained through the abdomen and pelvis without the use of intravenous contrast. Auto Exposure Controls were utilized during the CT exam to meet ALARA standards for radiation dose reduction. INDICATION: Abdominal pain. Nausea. COMPARISON: 10/02/2016. FINDINGS: The heart is unremarkable. A small amount of opacities is seen in the lingula. Cysts are seen in the right kidney with the largest measuring 3.6 x 2.8 cm and demonstrating a bilobed appearance. No hydronephrosis or renal calculi. The urinary bladder is unremarkable. The liver, spleen, pancreas, and adrenal glands have a normal noncontrast CT appearance. The gallbladder is surgically absent. There is no pathologically enlarged mesenteric or retroperitoneal adenopathy. The bowel loops are nondilated. The appendix is visualized in the right lower quadrant and has a normal appearance. There is no free fluid or free air. No acute osseous abnormalities. There is no free air, loculated collection, or adenopathy in the pelvis. IMPRESSION: 1. Bilobed cyst in the mid right kidney measuring 3.6 cm. This is new or increased in size since the prior exam from 2017. Recommend further characterization with renal ultrasound or contrast enhanced study. 2. Small amount of opacities in the lingula which may represent atelectasis and/or infection. The remainder of the included lungs is clear. Dictated by: Dictated on workstation # [id number]
[2022-11-16] MEDS ORDERED: PROM25TA14 PO (11:11)
[2022-11-16 11:24] VITALS: BP 123/75
== END 2022-11-16 11:28 | disposition home or self-care (01) ==
LOC: EDUNIT# 08:35 → ER 08:37
DX: R10.11 Right upper quadrant pain (principal); R11.2 Nausea with vomiting, unspecified; R93.5 Abnormal findings on diagnostic imaging of other abdominal regions, including retroperitoneum; E66.9 Obesity, unspecified; Z68.29 Body mass index [BMI] 29.0-29.9, adult; Z90.49 Acquired absence of other specified parts of digestive tract
CPT/HCPCS: 36415; 74176; 80053; 83690; 85007; 85027

== ENCOUNTER 2023-01-05 13:54 | Outpatient (RCR) | payer OTHER ==
[~2023-01-05 13:54] MED LIST changes: +PROM25TA14 PO
[2023-01-13] MEDS ORDERED: AMLO-251 PO (16:34)
[2023-01-13] MEDS ORDERED: LOSA50TA63 PO (16:34)
== END 2023-01-14 | disposition home or self-care (01) ==
PROVIDERS: ATTEND Orthopaedic Surgery
DX: M54.2 Cervicalgia (principal)

== ENCOUNTER 2023-01-13 05:39 | Outpatient (CLI) | payer OTHER ==
[~2023-01-13] VITALS: Ht 162.6 cm; Wt 77.1 kg
[2023-01-13] MEDS ORDERED: AMLO-251 PO (16:34)
[2023-01-13] MEDS ORDERED: LOSA50TA63 PO (16:34)
== END 2023-01-13 16:43 | disposition home or self-care (01) ==
LOC: PREOP 05:39
PROVIDERS: ATTEND Surgery
DX: Z01.818 Encounter for other preprocedural examination (principal)

== ENCOUNTER 2023-01-19 11:15 | Outpatient (RCR) | payer OTHER ==
[~2023-01-19 11:15] MED LIST changes: +AMLO-251 PO; +LOSA50TA63 PO
== END 2023-02-13 | disposition home or self-care (01) ==
PROVIDERS: ATTEND Orthopaedic Surgery
DX: M54.2 Cervicalgia (principal)

== ENCOUNTER 2023-01-26 07:14 | Day surgery (SDC) | payer OTHER ==
[~2023-01-26] VITALS: Ht 162.5 cm; Wt 77.1 kg
[2023-01-26] MEDS ORDERED: LACTATED RINGERS 1,000 ML 1,000 ML IV STA (07:17)
[2023-01-26 07:41] VITALS: BP 145/83
[2023-01-26] MEDS ORDERED: MIDAZOLAM INJ 2 MG/2 ML VIAL ONE (08:03)
[2023-01-26] MEDS ORDERED: ONDANSETRON INJECTION 4 MG/2 ML (SDV) ONE (08:04)
[2023-01-26 08:31] VITALS: BP 86/50
--- NOTE | 2023-01-26 08:33 | Progress Note-Post Operative ---
Post-Operative Progess Note Surgeon (s)/Qc Tech (s) Surgeon GREGORY MACKENZIE DO Qc Tech: NA Pre-Operative Diagnosis family history of colon cancer, screening colonoscopy Post-Operative Diagnosis cecum polyp, diverticulosis Procedure & Operative Findings Date of Procedure 01/26/23 Procedure Performed/Findings colonoscopy with hot biopsy, polypectomy Anesthesia Type per RIVET PASSER Estimated Blood Loss Estimated blood loss (mL): none Specimens/Packing Specimens Removed cecum polyp GREGORY MACKENZIE DO Jan 26, 2023 08:33
--- NOTE | 2023-01-26 08:35 | Discharge Inst-Simple/Standard ---
Discharge Inst-Standard Patient Instructions/Follow Up Plan of Care/Instructions/FU: 2 weeks caryn Activity as Tolerated: Yes Discharge Diet: Regular Diet (high fiber) GREGORY MACKENZIE DO Jan 26, 2023 08:35
[2023-01-26 08:36] VITALS: BP 93/54
[2023-01-26 08:40] VITALS: BP 101/53
[2023-01-26 09:26] VITALS: BP 101/53
--- NOTE | 2023-01-26 12:03 | Anesthesia-General Post-Op ---
MAC Patient Condition Mental Status/LOC: Same as Preop Cardiovascular: Satisfactory Nausea/Vomiting: Absent Respiratory: Satisfactory Pain: Controlled Complications: Absent Post Op Complications Complications None Follow Up Care/Instructions Patient Instructions None needed. Anesthesiology Discharge Order Discharge Order Patient is doing well, no complaints, stable vital signs, no apparent adverse anesthesia problems. No complications reported per nursing. LINSEY GARCIA CRNA Jan 26, 2023 12:03
--- NOTE | 2023-01-26 16:51 | OPERATIVE REPORT ---
DATE OF SERVICE: 01/26/2023 PREOPERATIVE DIAGNOSIS: Family history of colon cancer. POSTOPERATIVE DIAGNOSIS: Cecal polyp. PROCEDURE: Colonoscopy with hot biopsy polypectomy x1. SURGEON: Gregory Walsh DO ANESTHESIA: Per [employer]. ESTIMATED BLOOD LOSS: None. COMPLICATIONS: None. INDICATIONS: The patient is a 63-year-old female with family history of colon cancer. She understands risks and benefits of procedure and wished to proceed. Consent was signed in chart. DESCRIPTION OF PROCEDURE: The patient was taken to endoscopy suite, placed in left lateral recumbent position. Timeout was performed. Digital rectal exam was performed. No palpable polyps, masses or ulcerations. Scope was inserted in the rectum, advanced all the way to the cecum without difficulty. Prep was adequate. Scope was slowly retracted back. Small polyp was present in the cecum. Hot biopsy polypectomy was performed. Scope was then continuously retracted back. No polyps, masses or ulcerations within the ascending, transverse, descending and sigmoid colon. Minimal amount of diverticulosis present. Scope was continuously retracted back into the rectum where it was also retroflexed noting no other pathology. Scope was returned to its normal position, slowly withdrawn until completely removed. The patient tolerated the procedure well without any complications, taken to recovery room in stable condition. RECOMMENDATIONS: [ ] recommend repeat colonoscopy in 5 years due to family history of colon cancer and also polyps. We will follow up on pathology in 2 weeks. Recommend high fiber diet due to diverticulosis. Job ID: [id number] DocumentID: [id number] Dictated Date: 01/26/2023 08:37:56 Adjunct Trainer Date: 01/26/2023 16:49:00 Dictated By: GREGORY WALSH DO
== END 2023-01-26 09:26 | disposition home or self-care (01) ==
LOC: ENDO 07:14
PROVIDERS: ATTEND Surgery
DX: Z12.11 Encounter for screening for malignant neoplasm of colon (principal); K63.5 Polyp of colon; Z80.0 Family history of malignant neoplasm of digestive organs; Z28.310 Unvaccinated for COVID-19

== ENCOUNTER → 2023-02-24 | Outpatient (CLI) | payer OTHER ==
[2023-02-24 11:55] LABS: ALBUMIN 4.3 GM/DL (3.2-4.5); BILIRUBIN,TOTAL 0.6 MG/DL (0.1-1.0); CALCIUM 9.7 MG/DL (8.5-10.1); CREATININE SERUM 1.05 MG/DL (0.60-1.30); TOTAL PROTEIN 7.4 GM/DL (6.4-8.2)
[2023-02-24 12:16] LABS: FREE T4 (FREE THYROXINE) 1.3 NG/DL (0.70-1.48)
== END ==
LOC: LAB 10:15
PROVIDERS: ATTEND Nurse Practitioner
DX: E89.0 Postprocedural hypothyroidism (principal); R94.5 Abnormal results of liver function studies
CPT/HCPCS: 36415; 80053; 84439; 84443